=== PATIENT | female | born 1970 | race Caucasian/White ===

== ENCOUNTER → 2017-01-19 | Outpatient (CLI) | payer OTHER, BC ==
--- NOTE | 2017-01-19 13:46 | CR ---
EXAMINATION: Left knee HISTORY: Pain COMPARISON: None TECHNIQUE: 4 views FINDINGS/IMPRESSION: There is no acute osseous abnormality, dislocation, or fracture identified. Min imal joint space narrowing noted within the medial compartment with early osteophyte formation. No j oint effusion or soft tissue swelling.
== END ==
LOC: MW.CHORTHO 08:09
PROVIDERS: ATTEND Physician Assistant
DX: M25.562 Pain in left knee (principal); M25.762 Osteophyte, left knee
CPT/HCPCS: 73564-26-LT; 73564-LT

== ENCOUNTER 2017-02-06 08:29 | Observation (INO) | payer OTHER, BC ==
[~2017-02-06 08:29] MED LIST: Lactated Ringers 1,000 ML IV SCH; Lidocaine 1% 50 ML MDV ONE; ceFAZolin 2 GM in Premix Bag 1 BAG IV SCH
--- NOTE | 2017-02-06 10:00 | PCM.PREANE ---
Preanesthetic Assessment - Anesthesia/Transfusion/Family Hx Anesthesia History: Prior Anesthesia Without Reaction Family History of Anesthesia Reaction: No Transfusion History: No Prior Transfusion(s) Intubation History: Unknown - Review of Systems General: No Symptoms, Other (obesity) Pulmonary: No Symptoms Cardiovascular: No Symptoms Gastrointestinal: No symptoms Neurological: Other (Pain in right knee) Other: Reports: None - Physical Assessment O2 Sat by Pulse Oximetry: 98 Respiratory Rate: 16 Vital Signs: Last Vital Signs Temp 98.2 F 02/06/17 08:50 Pulse 69 02/06/17 08:50 Resp 16 02/06/17 08:50 BP 144/91 H 02/06/17 08:50 Pulse Ox 98 02/06/17 08:50 Height: 5 ft 5 in Weight: 230 lb ASA Class: 3 Mental Status: Alert & Oriented x3 Airway Class: Mallampati = 2 Dentition: Reports: Normal Dentition Thyro-Mental Finger Breadths: 3 Mouth Opening Finger Breadths: 3 ROM/Head Extension: Full Lungs: Clear to auscultation, Normal respiratory effort Cardiovascular: Regular Rate, Regular Rhythm, No Murmurs - Imaging/EKG Impressions: EKG - old inferior IN by criteria - Allergies Allergies/Adverse Reactions: Allergies Allergy/AdvReac Type Severity Reaction Status Date / Time No Known Allergies Allergy Verified 02/02/17 10:29 - Blood Blood Available: No Product(s) Available: None - Anesthesia Plan Pre-Op Medication Ordered: None - Acknowledgements Anesthesia Type Planned: General Anesthesia (LMA) Pt an Appropriate Candidate for the Planned Anesthesia: Yes Alternatives and Risks of Anesthesia Discussed w Pt/Guardian: Yes Pt/Guardian Understands and Agrees with Anesthesia Plan: Yes PreAnesthesia Questionnaire HEENT History: Reports: None Genitourinary History: Reports: None 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: Reports: Endocrine/Metabolic History: Reports: Obesity/BMI 30+ - Past Surgical History Head Surgeries/Procedures: Reports: None HEENT Surgical History: Reports: Tonsillectomy Female Surgical History: Reports: section, Tubal ligation Other Female Surgeries/Procedures: c/section x3, tubal ligation Musculoskeletal Surgical History: Reports: Arthroscopic knee Other Musculoskeletal Surgeries/Procedures:: rt knee arthroscopy - SUBSTANCE USE Smoking Status *Q: Never Smoker Second Hand Smoke Exposure: No Recreational Drug Use History: No - HOME MEDS Home Medications: Home Meds Acetaminophen [Tylenol Extra Strength] 2 tab PO ASDIRECTED PRN 02/02/17 [History ] traMADol HCl [Tramadol HCl] 1 - 2 tab PO ASDIRECTED PRN 02/02/17 [History] - CURRENT (IN HOUSE) MEDS Current Meds: Current Medications Hydrocodone Bitart/Acetaminophen ([place] 325-5 Mg) 1 - 2 tab PO Q4H PRN PRN Reason: Pain Lactated Ringer's (Ringers, Lactated) 1,000 mls @ 100 mls/hr IV ASDIRECTED [facility] Last Admin: 02/06/17 06:02 Dose: 100 mls/hr Cefazolin Sodium/Dextrose 2 gm (/ Premix) 50 mls @ 100 mls/hr IV ONCALL CHRISTINE Discontinued Medications Lidocaine HCl (Xylocaine 1%) Confirm Administered Dose 50 ml .ROUTE .STK-MED ONE Stop: 02/06/17 07:27 Preanesthetic Assessment - ANESTHESIA/TRANSFUSION/FAMILY HX Family History of Anesthesia Reaction: No - PHYSICAL ASSESSMENT O2 Sat by Pulse Oximetry: 98 RR: 16 Vital Signs: Last Vital Signs Temp 98.2 F 02/06/17 08:50 Pulse 69 02/06/17 08:50 Resp 16 02/06/17 08:50 BP 144/91 H 02/06/17 08:50 Pulse Ox 98 02/06/17 08:50 Height: 5 ft 5 in Weight: 230 lb - ALLERGIES Allergies/Adverse Reactions: Allergies Allergy/AdvReac Type Severity Reaction Status Date / Time No Known Allergies Allergy Verified 02/02/17 10:29
[2017-02-06] MEDS ORDERED: Midazolam 1 MG/ML 2 ML SDV ONE (10:17)
[2017-02-06] MEDS ORDERED: fentaNYL 250 MCG/5 ML SDV ONE (10:17)
[2017-02-06] MEDS ORDERED: Ondansetron 4 MG/2 ML SDV ONE (10:17)
[2017-02-06] MEDS ORDERED: Propofol 200 MG/20 ML SDV ONE ×2 (10:17→11:23)
[2017-02-06] MEDS ORDERED: Dexamethasone 4 MG/ML 5 ML MDV ONE (10:31)
[2017-02-06] MEDS ORDERED: HYDROmorphone 2 MG/ML Syringe ONE (10:37)
--- NOTE | 2017-02-06 11:03 | PCM.OPNOTE ---
- General Post-Op/Procedure Note Date of Surgery/Procedure: 02/06/17 Operative Procedure(s): Left knee arthroscopy with PMM Post-Op Diagnosis: Left knee DJD. LEft knee medial meniscus tear Anesthesia Technique: General LMA Primary Surgeon: [facility] [employer] [facility] Display Builder: Ayleen Russell in mLs: 5 Condition: Good Free Text/Narrative:: tt=14 min #[id number]
--- NOTE | 2017-02-06 11:35 | PCM.SN ---
- Free Text/Narrative Note: Called to PACU for pt with grand mal like seizure. When I arrived the pt is not shaking anymore and appears postictal, and doesn't respond to painful stimuli. After a peroid of 10 minutes she is now awake and oriented. Approximately 15 minutes after the first seizure witnessed by nursing; i witnessed another seizure with grand mal like activity, nystagmus also was noted. Valium 5mg IVP was given and seizure at this time appears to have resolved. Pt is sleepy but oriented to person, place, and time. Dr. Lacey and hospitalist konrad were notified. We will continue to monitor her in the PACU for now pending appropriate disposition.
--- NOTE | 2017-02-06 11:50 | PCM.SN ---
- Free Text/Narrative Note: Patient had witnessed seizure post operatively. Witnessed by anesthesia. Consult to medicine. She does have h/o one seizure in the past which was not worked up. No previous known seizures. Dr. Desai here now to evaluate the patient. Will defer medical management to hospitalist.
[2017-02-06 11:59] LABS: CHLORIDE,CL 110 mmol/L (98-110); SODIUM,NA 142 mmol/L (136-146)
--- NOTE | 2017-02-06 12:56 | PCM.POSTAN ---
POST ANESTHESIA ASSESSMENT - MENTAL STATUS Mental Status: alert, oriented - RESPIRATORY Respiratory Status: respiratory rate WNL, airway patent, O2 saturation stable - CARDIOVASCULAR CV Status: pulse rate WNL, blood pressure stable - GASTROINTESTINAL GI Status: no symptoms - PAIN Pain Score: 4 - POST OP HYDRATION Hydration Status: adequate & stable Free Text/Narrative:: going to ICU for observation for seizure activity
[2017-02-06] MEDS ORDERED: fentaNYL 100 MCG/2 ML SDV IVPUSH PRN (12:58)
[2017-02-06] MEDS ORDERED: fentaNYL 100 MCG/2 ML SDV ONE (13:00)
--- NOTE | 2017-02-06 13:15 | PCM48HPAN ---
Post Anesthesia Note - EVALUATION WITHIN 48HRS OF ANESTHETIC Vital Signs in Normal Range: Yes Patient Participated in Evaluation: Yes Respiratory Function Stable: Yes Airway Patent: Yes Cardiovascular Function Stable: Yes Hydration Status Stable: Yes Pain Control Satisfactory: Yes Nausea and Vomiting Control Satisfactory: Yes Mental Status Recovered: Yes
[2017-02-06] MEDS: Acetaminophen/HYDROcodone 325-5 MG Tab PO PRN ×3 (14:28→23:05)
[2017-02-06] MEDS: levETIRAcetam 500 MG Tab PO SCH ×2 (14:28→20:53)
--- NOTE | 2017-02-06 14:43 | PCM.HP ---
[id number] Seizure Source of Information: Patient, Provider History Limitations: Reports: No limitations - History of Present Illness Initial Comments - Free Text/Narative: 46 yo female admitted 02/06/17 for observed seizure after left knee arthroscopy. Medicine service called by Dr. Lacey and anesthesia to admit patient after 2 observed seizures in the PACU after left knee arthroscopy for medial meniscus tear. As per anesthesia patient did well during case but in PACU had one "seizure" with total body tremors and a 10 minute post-ictal stage. Patient then had another episode that was stopped using 5 mg of diazepam IV. Patient had a seizure 2 years ago in [place]. She did see a neurologist at that time where she states they did an EEG as well as other imaging. She was not started on an antiseizure medication at that time. She was treated for "headaches". also reports that she has been previously diagnosed with SLE but is not treated. In addition, patient has a history of hypertension that she was treated with propranolol before but does not take anymore. In OR, patient received Propofol, Dilaudid, fentanyl, Ancef, decadron, and zofran and Sevoflurane. In PACU second seizure was relieved with 5 mg Diazepam IV. Patient will be admitted for Observation in ICU. 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: Endocrine/Metabolic History: Reports: Obesity/BMI 30+ - Past Surgical History Head Surgeries/Procedures: Reports: None HEENT Surgical History: Reports: Tonsillectomy Female Surgical History: Reports: section, Tubal ligation Other Female Surgeries/Procedures: c/section x3, tubal ligation Musculoskeletal Surgical History: Reports: Arthroscopic knee Other Musculoskeletal Surgeries/Procedures:: rt knee arthroscopy Social & Family History - Tobacco Use Smoking Status *Q: Never Smoker Second Hand Smoke Exposure: No - Recreational Drug Use Recreational Drug Use: No Drug Use in Last 12 Months: No H&P Review of Systems - Review of Systems: Review Of Systems: See Below General: Reports: other (Has been feeling stressed secondary to daughters 8 months ago. ). Denies: fever, chills, fatigue HEENT: Denies: dysphasia, headaches, sore throat Pulmonary: Denies: Shortness of Breath, Wheezing, Pleuritic Chest Pain, Cough, Sputum Cardiovascular: Denies: chest pain, palpitations, edema Gastrointestinal: Denies: Abdominal pain, Diarrhea, Nausea Genitourinary: Denies: dysuria, hematuria Musculoskeletal: Denies: neck pain, leg pain Skin: Denies: cyanosis Psychiatric: Denies: confusion Neurological: Denies: Confusion Hematologic/Lymphatic: Denies: anemia, easy bleeding Exam - Exam Exam: See Below - Vital Signs Vital Signs: Last Vital Signs Temp 37.3 C 02/06/17 10:56 Pulse 63 02/06/17 13:00 Resp 10 L 02/06/17 13:00 BP 121/66 02/06/17 13:00 Pulse Ox 97 02/06/17 13:00 Weight: 104.326 kg - Exam Quality Assessment: DVT prophylaxis General: alert, oriented, cooperative HEENT: Conjunctiva clear, EACs clear, EOMI, Hearing intact, Mucosa moist & pink , Nares patent, Normal nasal septum, Posterior pharynx clear, PERRLA Neck: supple, trachea midline, 2 Lungs: Clear to auscultation, Normal respiratory effort Cardiovascular: regular rate, regular rhythm, normal S1, normal S2 Abdomen: normal bowel sounds, soft Extremities: normal inspection, normal pulses. No: calf tenderness, edema Peripheral Pulses: 2+: radial (L), radial (R), posterior tibial (L), posterior tibial (R), dorsalis pedis (L), dorsalis pedis (R) Skin: warm, dry, intact Neurological: cranial nerves intact Neuro Extensive - Mental Status: alert, oriented x3, normal mood/affect, normal cognition Neuro Extensive - Motor, Sensory, Reflexes: CN II-XII intact Psychiatric: alert, normal affect, normal mood - Patient Data Lab Results last 24 hrs: Laboratory Results - last 24 hr 02/06/17 02/06/17 02/06/17 Range/Units 09:17 11:21 11:21 WBC 5.91 (4.0-11.0) K/uL RBC 4.52 (4.30-5.90) M/uL Hgb 13.6 (12.0-16.0) g/dL Hct 39.1 (36.0-46.0) % MCV 86.5 (80.0-98.0) fL MCH 30.1 (27.0-32.0) pg MCHC 34.8 (31.0-37.0) g/dL RDW Std Deviation 39.7 (28.0-62.0) fl RDW Coeff of Leanne 13 (11.0-15.0) % Plt Count 163 (150-400) K/uL MPV 11.00 (7.40-12.00) fL Neut % (Auto) 60.3 (48.0-80.0) % Lymph % (Auto) 29.4 (16.0-40.0) % [place] % (Auto) 7.1 (0.0-15.0) % Eos % (Auto) 3.0 (0.0-7.0) % Baso % (Auto) 0.2 (0.0-1.5) % Neut # (Auto) 3.6 (1.4-5.7) K/uL Lymph # (Auto) 1.7 (0.6-2.4) K/uL [place] # (Auto) 0.4 (0.0-0.8) K/uL Eos # (Auto) 0.2 (0.0-0.7) K/uL Baso # (Auto) 0.0 (0.0-0.1) K/uL Nucleated RBC % 0.0 /100WBC Nucleated RBCs # 0 K/uL Sodium 142 (136-146) mmol/L Potassium 4.3 (3.5-5.1) mmol/L Chloride 110 (98-110) mmol/L Carbon Dioxide 23 (21-31) mmol/L BUN 7 (6.0-23.0) mg/dL Creatinine 0.8 (0.6-1.5) mg/dL Est Cr Clr Drug Dosing 77.38 mL/min Estimated GFR (MDRD) > 60.0 ml/min Glucose 113 H (60-110) mg/dL Calcium 9.0 (8.8-10.8) mg/dL Prolactin 223 H (0-27) ng/mL HCG, Qual NEGATIVE (NEG) Result Diagrams: 02/06/17 11:21 02/06/17 11:21 *Q Meaningful Use (ADM) - VTE *Q VTE Criteria *Q: - Stroke *Q Stroke Criteria *Q: - AMI *Q AMI Criteria *Q: - Problem List (1) Grand mal seizure SNOMED Code(s): 23817307 ICD Code: G40.409 - OTH GENERALIZED EPILEPSY, NOT INTRACTABLE, W/O STAT EPI Status: Acute Priority: High Current Visit: Yes Problem List Initiated/Reviewed/Updated: Yes Orders Last 24hrs: Active Orders 24 hr Category Date Time Status Patient Status [ADT] Routine ADT 02/06/17 14:09 Active Antiembolic Devices [RC] PER UNIT ROUTINE Care 02/06/17 14:12 Active EEG Awake Drowsy [RC] ROUTINE Care 02/06/17 14:23 Active EKG 12 Lead [EKG Documentation Completion] [RC] ROUTINE Care 02/06/17 14:34 Active Notify Provider Consults [RC] ASDIRECTED Care 02/06/17 11:48 Active Oxygen Therapy [RC] PRN Care 02/06/17 14:09 Active Ready for Discharge [RC] PER UNIT ROUTINE Care 02/06/17 10:46 Active VTE/DVT Education [RC] PER UNIT ROUTINE Care 02/06/17 14:09 Active Vital Signs [RC] Q4H Care 02/06/17 14:09 Active Consult to Physician [CONS] Routine Cons 02/06/17 11:46 Active Nothing per Oral After Midnight Diet [DIET] Diet 02/05/17 Dinner Active Regular Diet [DIET] Diet 02/06/17 Dinner Active Brain w wo Cont [MR] Routine Exams 02/06/17 14:21 Ordered CBC WITH AUTO DIFF [HEME] DAILY Lab 02/07/17 05:00 Ordered CBC WITH AUTO DIFF [HEME] DAILY Lab 02/08/17 05:00 Ordered CBC WITH AUTO DIFF [HEME] DAILY Lab 02/09/17 05:00 Ordered COMPREHENSIVE METABOLIC PN,CMP [CHEM] DAILY Lab 02/07/17 05:00 Ordered COMPREHENSIVE METABOLIC PN,CMP [CHEM] DAILY Lab 02/08/17 05:00 Ordered COMPREHENSIVE METABOLIC PN,CMP [CHEM] DAILY Lab 02/09/17 05:00 Ordered MAGNESIUM [CHEM] AM Lab 02/07/17 05:11 Ordered Acetaminophen/HYDROcodone [[place] 325-5 MG] Med 02/06/17 09:00 Active 1 - 2 tab PO Q4H PRN ceFAZolin [Ancef] 2 gm Med 02/06/17 08:00 Active Premix Bag 1 bag IV ONCALL fentaNYL [Sublimaze] Med 02/06/17 12:58 Active 50 mcg IVPUSH SEECOMMENT PRN levETIRAcetam [Keppra] Med 02/06/17 14:15 Active 500 mg PO BID Obtain Home Medication List [OM.PC] Routine Oth 02/06/17 06:00 Ordered Seizure Precautions [OM.PC] Routine Oth 02/06/17 14:09 Ordered Sequential Compression Device [OM.PC] Per Unit Routine Oth 02/06/17 14:11 Ordered Medication Orders Hydrocodone Bitart/Acetaminophen ([place] 325-5 Mg) 1 - 2 tab PO Q4H PRN PRN Reason: Pain Last Admin: 02/06/17 14:28 Dose: 2 tab Fentanyl (Sublimaze) 50 mcg IVPUSH SEECOMMENT PRN PRN Reason: Pain (moderate 4-6) Cefazolin Sodium/Dextrose 2 gm (/ Premix) 50 mls @ 100 mls/hr IV ONCALL CHRISTINE Levetiracetam (Keppra) 500 mg PO BID CHRISTINE Last Admin: 02/06/17 14:28 Dose: 500 mg Assessment/Plan Comment:: 46 yo female admitted 02/06/17 for observed grand mal seizure x 2. Seizure: I did call Dr. Jules, neurologist Mario Yen, who recommended starting Keppra 500 mg BID as this was her second episode of seizures. We will also get an MRI, EEG, UA and ECG. Her labs showed no electrolyte disturbances and her prolactin was elevated at 223. Diazepam 5 mg IV prn for seizures. Will plan to have patient see Dr. Malloy, neurologist as outpatient if she does fine overnight. Dispo: Tomorrow pending.
--- NOTE | 2017-02-06 15:37 | OR ---
SURGEON: Zulma Lacey MD DATE OF PROCEDURE: 02/06/2017 PREOPERATIVE DIAGNOSIS: Left knee medial meniscus tear. POSTOPERATIVE DIAGNOSES: 1. Left knee medial meniscus tear. 2. Left knee degenerative joint disease. PROCEDURE: Left knee arthroscopy with partial medial meniscectomy. PRESIDENT SALES AND MARKETING: Ayleen Russell PA-C. ANESTHESIA: General. ESTIMATED BLOOD LOSS: 5 mL. TOURNIQUET TIME: 14 minutes. COMPLICATIONS: None. DVT PROPHYLAXIS: Not indicated. IMPLANTS USED: None. BRIEF HISTORY: Letha is a 46-year-old female, who sustained an injury to her left knee. She failed to respond to conservative treatment. An MRI did show a tear of the medial meniscus. Due to her lack of response to conservative treatment, I did recommend surgical intervention. The risks and goals of procedure were discussed with the patient and were documented preoperatively. She agreed to proceed. DESCRIPTION OF PROCEDURE: The patient was properly identified and brought to the operating room. She was transferred from the OR cart and placed on operating table in a supine position. General anesthesia was administered. After adequate anesthesia was obtained, a well-padded tourniquet was applied to the left lower extremity. The left lower extremity was then prepped in standard fashion using ChloraPrep solution. It was then sterilely draped. A time-out was performed to ensure correct site and procedure. Preoperative antibiotics were given. The surgical site had been marked preoperatively. An Esmarch was used to exsanguinate the left lower extremity and the tourniquet was inflated to 250 mmHg. A lateral portal arthrotomy was established. Blunt trocar and cannula were introduced into the suprapatellar space. Camera, inflow, and outflow were assembled. No significant synovitis was noted. The patellofemoral joint was visualized. The patella appeared to track centrally. I then extended down the lateral and medial gutter. No loose bodies were identified. I then entered the medial compartment. A medial portal arthrotomy was established. A blunt probe was inserted. The medial meniscus was probed. She was found to have a tear of the posterior horn which was unstable. Using a combination of biters and shaver, this was resected back to a stable remnant. 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 The medial femoral condyle also showed grade 2 chondromalacia. I then entered the notch. Both the ACL and PCL were visualized and probed and found to be intact. I finally entered the lateral compartment. The lateral tibial plateau as well as the lateral femoral condyle showed softening consistent with grade 1 chondromalacia. The meniscus was probed and found to be stable. I then entered the patellofemoral joint again. A probe was used to inspect the joint surfaces. There was an area of wear along the central portion of the trochlear groove, which measured approximately 5 mm x 20 mm. This was diffuse grade 3 chondromalacia. Grade 2 to grade 3 chondromalacia was also noted diffusely along the undersurface of the patella. Instruments were then removed from the knee. The portal sites were closed with 3-0 nylon. Lidocaine 1% was injected along the portal tracts. Xeroform gauze was placed over the wound and a bulky dressing was applied. The tourniquet was then deflated. She was awakened from her anesthetic and transferred back to the operating room cart. She was brought to recovery room in stable condition. All needle and sponge counts were correct. ROSARIO / DEENA /[id number]
[2017-02-06] MEDS ORDERED: Gadobutrol 7.5 mMOL/7.5 ML SDV IVPUSH STA (15:49)
[2017-02-07] MEDS: Acetaminophen/HYDROcodone 325-5 MG Tab PO PRN ×3 (03:28→11:53)
[2017-02-07 06:32] LABS: CHLORIDE,CL 111 mmol/L (98-110); SODIUM,NA 142 mmol/L (136-146)
[2017-02-07] MEDS: levETIRAcetam 500 MG Tab PO SCH (08:39)
--- NOTE | 2017-02-07 10:56 | PCM.DCSUM1 ---
<Nav Desai - Last Filed: 02/07/17 10:54> Discharge Summary - Hospital Course HPI Initial Comments: 46 yo female admitted 02/06/17 for observed seizure after left knee arthroscopy. Brief History: Medicine service was called by Dr. Lacey and anesthesia to admit patient after 2 observed seizures in the PACU after left knee arthroscopy for medial meniscus tear. As per anesthesia patient did well during case but in PACU had one "seizure" with total body tremors and a 10 minute post-ictal stage. Patient then had another episode that was stopped using 5 mg of diazepam IV. Patient had a seizure 2 years ago in [place]. She did see a neurologist at that time where she states they did an EEG as well as other imaging. She was not started on an antiseizure medication at that time. She was treated for "headaches". also reports that she has been previously diagnosed with SLE but is not treated. In addition, patient has a history of hypertension that she was treated with propranolol before but does not take anymore. - Discharge Data Discharge Date: 02/07/17 Discharge Disposition: Home, Self-Care 01 Condition: Good - Discharge Diagnosis/Problem(s) (1) Grand mal seizure SNOMED Code(s): 48597801 ICD Code: G40.409 - OTH GENERALIZED EPILEPSY, NOT INTRACTABLE, W/O STAT EPI Status: Acute Priority: High - Patient Summary/Data Operative Procedure(s) Performed: Left knee arthroscopy with PMM Consults: Consultations 02/06/17 11:46 Consult to Physician [CONS] Routine Hospital Course: see summary below. - Patient Instructions Diet: Usual Diet as Tolerated Activity: Apply Ice, As Tolerated, Elevate Extremity, Rest and Relax Today Driving: Do Not Drive Showering/Bathing, Other: May shower in 48 hours. Wound/Incision Care: Keep Operative Site/Wound Site Clean and Dry Notify Provider of: Fever, Increased Pain, Swelling and Redness, Drainage, Nausea and/or Vomiting - Discharge Plan Prescriptions/Med Rec: Acetaminophen/HYDROcodone [[place] 325-5 MG] 1 - 2 tab PO Q4H PRN #80 tablet PRN Reason: Pain levETIRAcetam [Keppra] 500 mg PO BID #28 tablet Home Medications: Home Meds traMADol HCl [Tramadol HCl] 50 - 100 mg PO QID PRN 02/02/17 [History] Acetaminophen/HYDROcodone [[place] 325-5 MG] 1 - 2 tab PO Q4H PRN #80 tablet 02/06 [Rx] levETIRAcetam [Keppra] 500 mg PO BID #28 tablet 02/07/17 [Rx] Patient Handouts: Seizure, Adult Referrals: Zulma Lacey MD [Physician] - 03/16/17 8:30 am Monse Malloy MD [Physician] - 02/17/17 10:00 am (Follow up with Neurologist ) Fariha Ricketts PA [Physician Director Of People] - 02/15/17 10:00 am (follow up with PCP- Jamarcus) Amelia Jorge PA [Physician Director Of People] - 02/16/17 8:30 am (If you have questions prior to followup, call Dr. Lacey's clinic) - Discharge Summary/Plan Comment DC Time >30 min.: Yes Discharge Summary/Plan Comment: 46 yo female admitted 02/06/17 for observed seizure after left knee arthroscopy. Medicine service was called by Dr. Lacey and anesthesia to admit patient after 2 observed seizures in the PACU after left knee arthroscopy for medial meniscus tear. As per anesthesia patient did well during case but in PACU had one "seizure" with total body tremors and a 10 minute post-ictal stage. Patient then had another episode that was stopped using 5 mg of diazepam IV. Patient had a seizure 2 years ago in [place]. She did see a neurologist at that time where she states they did an EEG as well as other imaging. She was not started on an antiseizure medication at that time. She was treated for "headaches". also reports that she has been previously diagnosed with SLE but is not treated. In addition, patient has a history of hypertension that she was treated with propranolol before but does not take anymore. In OR, patient received Propofol, Dilaudid, fentanyl, Ancef, decadron, and zofran and Sevoflurane. In PACU second seizure was relieved with 5 mg Diazepam IV. Patient will be admitted for Observation in ICU. Patient did well overnight and had no further seizures. ECG, UA, CBC, CMP were all unremarkable. Patient did have an elevated prolactin of 223 soon after the observed seizures. Unofficial MRI showed no gross anatomic abnormalities to explain seizures. I did talk with Dr. Jules, neurologist Yovana Martin, who agreed with starting the patient on Keppra 500 mg twice daily. A prescription for this was given to patient on day of discharge as well as outpatient EEG, follow-up with Dr. Malloy, neurlogist, her pcp JOVANA Shaikh, and Dr. Lacey, orthopedics. Patient was discharged in good condition and instructed to follow- up with her appointments, take medication as prescribed and go to ED if she has any further episodes of seizures. - General Info Date of Service: 02/07/17 Admission Dx/Problem (Free Text: Seizure Functional Status: Reports: pain controlled, tolerating diet, ambulating - Review of Systems General: Denies: Fever, Weakness, Fatigue HEENT: Denies: headaches Pulmonary: Denies: shortness of breath, wheezing Cardiovascular: Denies: Chest Pain, Palpitations, Edema Gastrointestinal: Denies: Abdominal pain, Constipation, Nausea, Vomiting Genitourinary: Denies: dysuria, hematuria Musculoskeletal: Reports: joint pain. Denies: neck pain, leg pain Skin: Denies: cyanosis Neurological: Denies: Confusion, Dizziness Psychiatric: Denies: confusion - Patient Data Vitals - Most Recent: Last Vital Signs Temp 36.2 C 02/07/17 07:51 Pulse 60 02/07/17 06:00 Resp 16 02/07/17 09:00 BP 148/60 H 02/07/17 09:00 Pulse Ox 98 02/07/17 09:00 Weight - Most Recent: 104.34 kg I&O - Last 24 hours: Intake & Output 02/06/17 02/07/17 02/07/17 22:59 06:59 14:59 Intake Total 900 1200 Output Total 1200 1500 Balance -300 -300 Lab Results - Last 24 hrs: Laboratory Results - last 24 hr 02/06/17 02/06/17 02/06/17 Range/Units 11:21 11:21 18:00 WBC 5.91 (4.0-11.0) K/uL RBC 4.52 (4.30-5.90) M/uL Hgb 13.6 (12.0-16.0) g/dL Hct 39.1 (36.0-46.0) % MCV 86.5 (80.0-98.0) fL MCH 30.1 (27.0-32.0) pg MCHC 34.8 (31.0-37.0) g/dL RDW Std Deviation 39.7 (28.0-62.0) fl RDW Coeff of Leanne 13 (11.0-15.0) % Plt Count 163 (150-400) K/uL MPV 11.00 (7.40-12.00) fL Neut % (Auto) 60.3 (48.0-80.0) % Lymph % (Auto) 29.4 (16.0-40.0) % [place] % (Auto) 7.1 (0.0-15.0) % Eos % (Auto) 3.0 (0.0-7.0) % Baso % (Auto) 0.2 (0.0-1.5) % Neut # (Auto) 3.6 (1.4-5.7) K/uL Lymph # (Auto) 1.7 (0.6-2.4) K/uL [place] # (Auto) 0.4 (0.0-0.8) K/uL Eos # (Auto) 0.2 (0.0-0.7) K/uL Baso # (Auto) 0.0 (0.0-0.1) K/uL Nucleated RBC % 0.0 /100WBC Nucleated RBCs # 0 K/uL Sodium 142 (136-146) mmol/L Potassium 4.3 (3.5-5.1) mmol/L Chloride 110 (98-110) mmol/L Carbon Dioxide 23 (21-31) mmol/L BUN 7 (6.0-23.0) mg/dL Creatinine 0.8 (0.6-1.5) mg/dL Est Cr Clr Drug Dosing 77.38 mL/min Estimated GFR (MDRD) > 60.0 ml/min Glucose 113 H (60-110) mg/dL Calcium 9.0 (8.8-10.8) mg/dL Magnesium (1.5-2.3) mEq/L Total Bilirubin (0.1-1.5) mg/dL AST (5-40) IU/L ALT (8-54) IU/L Alkaline Phosphatase (40-150) Total Protein (6.0-8.0) g/dL Albumin (3.5-5.0) g/dL Globulin (2.0-3.5) g/dL Albumin/Globulin Ratio (1.3-2.8) Prolactin 223 H (0-27) ng/mL Urine Color YELLOW Urine Appearance CLEAR Urine pH 7.0 (5.0-8.0) Ur Specific [place] <= 1.005 (1.001-1.035) Urine Protein NEGATIVE (NEGATIVE) mg/dL Urine Glucose (UA) NEGATIVE (NEGATIVE) mg/dL Urine Ketones NEGATIVE (NEGATIVE) mg/dL Urine Occult Blood NEGATIVE (NEGATIVE) Urine Nitrite NEGATIVE (NEGATIVE) Urine Bilirubin NEGATIVE (NEGATIVE) Urine Urobilinogen 0.2 (<2.0) EU/dL Ur Leukocyte Esterase NEGATIVE (NEGATIVE) Urine RBC Not Reportable Urine WBC 0-1 (0-5/HPF) Ur Epithelial Cells RARE (NONE-FEW) Urine Bacteria RARE (NEGATIVE) 02/07/17 02/07/17 02/07/17 Range/Units 05:30 05:30 05:30 WBC 7.36 (4.0-11.0) K/uL RBC 4.28 L (4.30-5.90) M/uL Hgb 12.8 (12.0-16.0) g/dL Hct 37.2 (36.0-46.0) % MCV 86.9 (80.0-98.0) fL MCH 29.9 (27.0-32.0) pg MCHC 34.4 (31.0-37.0) g/dL RDW Std Deviation 39.8 (28.0-62.0) fl RDW Coeff of Leanne 13 (11.0-15.0) % Plt Count 160 (150-400) K/uL MPV 11.30 (7.40-12.00) fL Neut % (Auto) 68.8 (48.0-80.0) % Lymph % (Auto) 23.8 (16.0-40.0) % [place] % (Auto) 6.5 (0.0-15.0) % Eos % (Auto) 0.8 (0.0-7.0) % Baso % (Auto) 0.1 (0.0-1.5) % Neut # (Auto) 5.1 (1.4-5.7) K/uL Lymph # (Auto) 1.8 (0.6-2.4) K/uL [place] # (Auto) 0.5 (0.0-0.8) K/uL Eos # (Auto) 0.1 (0.0-0.7) K/uL Baso # (Auto) 0.0 (0.0-0.1) K/uL Nucleated RBC % 0.0 /100WBC Nucleated RBCs # 0 K/uL Sodium 142 (136-146) mmol/L Potassium 3.9 (3.5-5.1) mmol/L Chloride 111 H (98-110) mmol/L Carbon Dioxide 22 (21-31) mmol/L BUN 7 (6.0-23.0) mg/dL Creatinine 0.7 (0.6-1.5) mg/dL Est Cr Clr Drug Dosing 88.30 mL/min Estimated GFR (MDRD) > 60.0 ml/min Glucose 95 (60-110) mg/dL Calcium 9.0 (8.8-10.8) mg/dL Magnesium 1.6 (1.5-2.3) mEq/L Total Bilirubin 0.4 (0.1-1.5) mg/dL AST 17 (5-40) IU/L ALT 27 (8-54) IU/L Alkaline Phosphatase 54 (40-150) Total Protein 6.3 (6.0-8.0) g/dL Albumin 3.8 (3.5-5.0) g/dL Globulin 2.5 (2.0-3.5) g/dL Albumin/Globulin Ratio 1.5 (1.3-2.8) Prolactin (0-27) ng/mL Urine Color Urine Appearance Urine pH (5.0-8.0) Ur Specific [place] (1.001-1.035) Urine Protein (NEGATIVE) mg/dL Urine Glucose (UA) (NEGATIVE) mg/dL Urine Ketones (NEGATIVE) mg/dL Urine Occult Blood (NEGATIVE) Urine Nitrite (NEGATIVE) Urine Bilirubin (NEGATIVE) Urine Urobilinogen (<2.0) EU/dL Ur Leukocyte Esterase (NEGATIVE) Urine RBC Urine WBC (0-5/HPF) Ur Epithelial Cells (NONE-FEW) Urine Bacteria (NEGATIVE) Med Orders - Current: Current Medications Hydrocodone Bitart/Acetaminophen ([place] 325-5 Mg) 1 - 2 tab PO Q4H PRN PRN Reason: Pain Last Admin: 02/07/17 07:47 Dose: 2 tab Diazepam (Valium) 5 mg IVPUSH ONETIME PRN PRN Reason: Seizures Levetiracetam (Keppra) 500 mg PO BID [facility] Last Admin: 02/07/17 08:39 Dose: 500 mg Discontinued Medications Dexamethasone (Dexamethasone) Confirm Administered Dose 20 mg .ROUTE .STK-MED ONE Stop: 02/06/17 10:32 Diazepam (Valium) 5 mg IVPUSH ONETIME ONE Stop: 02/06/17 11:24 Last Admin: 02/06/17 11:26 Dose: 5 mg Fentanyl (Sublimaze) Confirm Administered Dose 250 mcg .ROUTE .STK-MED ONE Stop: 02/06/17 10:18 Fentanyl (Sublimaze) 50 mcg IVPUSH SEECOMMENT PRN PRN Reason: Pain (moderate 4-6) Fentanyl (Sublimaze) Confirm Administered Dose 100 mcg .ROUTE .STK-MED ONE Stop: 02/06/17 13:01 Last Admin: 02/06/17 14:03 Dose: Not Given Gadobutrol (Gadavist) 7.5 ml IVPUSH ONETIME STA Stop: 02/06/17 15:50 Last Admin: 02/06/17 15:50 Dose: 7.5 ml Hydromorphone HCl (Dilaudid) Confirm Administered Dose 2 mg .ROUTE .STK-MED ONE Stop: 02/06/17 10:38 Lactated Ringer's (Ringers, Lactated) 1,000 mls @ 100 mls/hr IV ASDIRECTED [facility] Last Admin: 02/06/17 06:02 Dose: 100 mls/hr Cefazolin Sodium/Dextrose 2 gm (/ Premix) 50 mls @ 100 mls/hr IV ONCALL [facility] Cefazolin Sodium/Dextrose (Ancef) Confirm Administered Dose 100 mls @ as directed .ROUTE .STK-MED ONE Stop: 02/06/17 10:18 Lidocaine HCl (Xylocaine 1%) Confirm Administered Dose 50 ml .ROUTE .STK-MED ONE Stop: 02/06/17 07:27 Midazolam HCl (Versed 1 Mg/Ml) Confirm Administered Dose 2 mg .ROUTE .STK-MED ONE Stop: 02/06/17 10:18 Ondansetron HCl (Zofran) Confirm Administered Dose 4 mg .ROUTE .STK-MED ONE Stop: 02/06/17 10:18 Propofol (Diprivan 20 Ml) Confirm Administered Dose 200 mg .ROUTE .STK-MED ONE Stop: 02/06/17 10:18 Propofol (Diprivan 20 Ml) Confirm Administered Dose 200 mg .ROUTE .STK-MED ONE Stop: 02/06/17 11:24 - Exam Quality Assessment: Reports: DVT prophylaxis General: Reports: alert, oriented, cooperative, no acute distress HEENT: Reports: Pupils equal, Pupils reactive, EOMI, Mucous membr. moist/pink Neck: Reports: supple Lungs: Reports: Clear to auscultation, Normal respiratory effort Cardiovascular: Reports: Regular Rate, Regular Rhythm Abdomen: Reports: bowel sounds present, soft, no tenderness, no distension Back Exam: Reports: normal inspection Extremities: Reports: no edema, normal pulses Skin: Reports: warm, dry, intact Neurological: Reports: no new focal deficit Psy/Mental Status: Reports: alert, normal affect, normal mood *Q Meaningful Use (DIS) - VTE *Q VTE Criteria *Q: - Stroke *Q Stroke Criteria *Q: - AMI *Q AMI Criteria *Q: <Tim Duenas O - Last Filed: 02/07/17 12:55> Discharge Summary - Patient Summary/Data Consults: Consultations 02/06/17 11:46 Consult to Physician [CONS] Routine - Discharge Summary/Plan Comment Discharge Summary/Plan Comment: I was present with the resident during the history and exam. I discussed the case with the resident and agree with the findings an plan as documented in the resident's note - Patient Data Vitals - Most Recent: Last Vital Signs Temp 36.2 C 02/07/17 07:51 Pulse 65 02/07/17 10:00 Resp 8 L 02/07/17 10:00 BP 131/68 02/07/17 10:00 Pulse Ox 99 02/07/17 10:00 I&O - Last 24 hours: Intake & Output 02/06/17 02/07/17 02/07/17 22:59 06:59 14:59 Intake Total 900 1200 Output Total 1200 1500 Balance -300 -300 Lab Results - Last 24 hrs: Laboratory Results - last 24 hr 02/06/17 02/06/17 02/07/17 Range/Units 11:21 18:00 05:30 WBC 7.36 (4.0-11.0) K/uL RBC 4.28 L (4.30-5.90) M/uL Hgb 12.8 (12.0-16.0) g/dL Hct 37.2 (36.0-46.0) % MCV 86.9 (80.0-98.0) fL MCH 29.9 (27.0-32.0) pg MCHC 34.4 (31.0-37.0) g/dL RDW Std Deviation 39.8 (28.0-62.0) fl RDW Coeff of Leanne 13 (11.0-15.0) % Plt Count 160 (150-400) K/uL MPV 11.30 (7.40-12.00) fL Neut % (Auto) 68.8 (48.0-80.0) % Lymph % (Auto) 23.8 (16.0-40.0) % [place] % (Auto) 6.5 (0.0-15.0) % Eos % (Auto) 0.8 (0.0-7.0) % Baso % (Auto) 0.1 (0.0-1.5) % Neut # (Auto) 5.1 (1.4-5.7) K/uL Lymph # (Auto) 1.8 (0.6-2.4) K/uL [place] # (Auto) 0.5 (0.0-0.8) K/uL Eos # (Auto) 0.1 (0.0-0.7) K/uL Baso # (Auto) 0.0 (0.0-0.1) K/uL Nucleated RBC % 0.0 /100WBC Nucleated RBCs # 0 K/uL Sodium 142 (136-146) mmol/L Potassium 4.3 (3.5-5.1) mmol/L Chloride 110 (98-110) mmol/L Carbon Dioxide 23 (21-31) mmol/L BUN 7 (6.0-23.0) mg/dL Creatinine 0.8 (0.6-1.5) mg/dL Est Cr Clr Drug Dosing 77.38 mL/min Estimated GFR (MDRD) > 60.0 ml/min Glucose 113 H (60-110) mg/dL Calcium 9.0 (8.8-10.8) mg/dL Magnesium (1.5-2.3) mEq/L Total Bilirubin (0.1-1.5) mg/dL AST (5-40) IU/L ALT (8-54) IU/L Alkaline Phosphatase (40-150) Total Protein (6.0-8.0) g/dL Albumin (3.5-5.0) g/dL Globulin (2.0-3.5) g/dL Albumin/Globulin Ratio (1.3-2.8) Prolactin 223 H (0-27) ng/mL Urine Color YELLOW Urine Appearance CLEAR Urine pH 7.0 (5.0-8.0) Ur Specific [place] <= 1.005 (1.001-1.035) Urine Protein NEGATIVE (NEGATIVE) mg/dL Urine Glucose (UA) NEGATIVE (NEGATIVE) mg/dL Urine Ketones NEGATIVE (NEGATIVE) mg/dL Urine Occult Blood NEGATIVE (NEGATIVE) Urine Nitrite NEGATIVE (NEGATIVE) Urine Bilirubin NEGATIVE (NEGATIVE) Urine Urobilinogen 0.2 (<2.0) EU/dL Ur Leukocyte Esterase NEGATIVE (NEGATIVE) Urine RBC Not Reportable Urine WBC 0-1 (0-5/HPF) Ur Epithelial Cells RARE (NONE-FEW) Urine Bacteria RARE (NEGATIVE) 02/07/17 02/07/17 Range/Units 05:30 05:30 WBC (4.0-11.0) K/uL RBC (4.30-5.90) M/uL Hgb (12.0-16.0) g/dL Hct (36.0-46.0) % MCV (80.0-98.0) fL MCH (27.0-32.0) pg MCHC (31.0-37.0) g/dL RDW Std Deviation (28.0-62.0) fl RDW Coeff of Leanne (11.0-15.0) % Plt Count (150-400) K/uL MPV (7.40-12.00) fL Neut % (Auto) (48.0-80.0) % Lymph % (Auto) (16.0-40.0) % [place] % (Auto) (0.0-15.0) % Eos % (Auto) (0.0-7.0) % Baso % (Auto) (0.0-1.5) % Neut # (Auto) (1.4-5.7) K/uL Lymph # (Auto) (0.6-2.4) K/uL [place] # (Auto) (0.0-0.8) K/uL Eos # (Auto) (0.0-0.7) K/uL Baso # (Auto) (0.0-0.1) K/uL Nucleated RBC % /100WBC Nucleated RBCs # K/uL Sodium 142 (136-146) mmol/L Potassium 3.9 (3.5-5.1) mmol/L Chloride 111 H (98-110) mmol/L Carbon Dioxide 22 (21-31) mmol/L BUN 7 (6.0-23.0) mg/dL Creatinine 0.7 (0.6-1.5) mg/dL Est Cr Clr Drug Dosing 88.30 mL/min Estimated GFR (MDRD) > 60.0 ml/min Glucose 95 (60-110) mg/dL Calcium 9.0 (8.8-10.8) mg/dL Magnesium 1.6 (1.5-2.3) mEq/L Total Bilirubin 0.4 (0.1-1.5) mg/dL AST 17 (5-40) IU/L ALT 27 (8-54) IU/L Alkaline Phosphatase 54 (40-150) Total Protein 6.3 (6.0-8.0) g/dL Albumin 3.8 (3.5-5.0) g/dL Globulin 2.5 (2.0-3.5) g/dL Albumin/Globulin Ratio 1.5 (1.3-2.8) Prolactin (0-27) ng/mL Urine Color Urine Appearance Urine pH (5.0-8.0) Ur Specific [place] (1.001-1.035) Urine Protein (NEGATIVE) mg/dL Urine Glucose (UA) (NEGATIVE) mg/dL Urine Ketones (NEGATIVE) mg/dL Urine Occult Blood (NEGATIVE) Urine Nitrite (NEGATIVE) Urine Bilirubin (NEGATIVE) Urine Urobilinogen (<2.0) EU/dL Ur Leukocyte Esterase (NEGATIVE) Urine RBC Urine WBC (0-5/HPF) Ur Epithelial Cells (NONE-FEW) Urine Bacteria (NEGATIVE) Med Orders - Current: Current Medications Discontinued Medications Hydrocodone Bitart/Acetaminophen ([place] 325-5 Mg) 1 - 2 tab PO Q4H PRN PRN Reason: Pain Last Admin: 02/07/17 11:53 Dose: 2 tab Dexamethasone (Dexamethasone) Confirm Administered Dose 20 mg .ROUTE .STK-MED ONE Stop: 02/06/17 10:32 Diazepam (Valium) 5 mg IVPUSH ONETIME ONE Stop: 02/06/17 11:24 Last Admin: 02/06/17 11:26 Dose: 5 mg Diazepam (Valium) 5 mg IVPUSH ONETIME PRN PRN Reason: Seizures Fentanyl (Sublimaze) Confirm Administered Dose 250 mcg .ROUTE .STK-MED ONE Stop: 02/06/17 10:18 Fentanyl (Sublimaze) 50 mcg IVPUSH SEECOMMENT PRN PRN Reason: Pain (moderate 4-6) Fentanyl (Sublimaze) Confirm Administered Dose 100 mcg .ROUTE .STK-MED ONE Stop: 02/06/17 13:01 Last Admin: 02/06/17 14:03 Dose: Not Given Gadobutrol (Gadavist) 7.5 ml IVPUSH ONETIME STA Stop: 02/06/17 15:50 Last Admin: 02/06/17 15:50 Dose: 7.5 ml Hydromorphone HCl (Dilaudid) Confirm Administered Dose 2 mg .ROUTE .STK-MED ONE Stop: 02/06/17 10:38 Lactated Ringer's (Ringers, Lactated) 1,000 mls @ 100 mls/hr IV ASDIRECTED [facility] Last Admin: 02/06/17 06:02 Dose: 100 mls/hr Cefazolin Sodium/Dextrose 2 gm (/ Premix) 50 mls @ 100 mls/hr IV ONCALL [facility] Cefazolin Sodium/Dextrose (Ancef) Confirm Administered Dose 100 mls @ as directed .ROUTE .STK-MED ONE Stop: 02/06/17 10:18 Levetiracetam (Keppra) 500 mg PO BID [facility] Last Admin: 02/07/17 08:39 Dose: 500 mg Lidocaine HCl (Xylocaine 1%) Confirm Administered Dose 50 ml .ROUTE .STK-MED ONE Stop: 02/06/17 07:27 Midazolam HCl (Versed 1 Mg/Ml) Confirm Administered Dose 2 mg .ROUTE .STK-MED ONE Stop: 02/06/17 10:18 Ondansetron HCl (Zofran) Confirm Administered Dose 4 mg .ROUTE .STK-MED ONE Stop: 02/06/17 10:18 Propofol (Diprivan 20 Ml) Confirm Administered Dose 200 mg .ROUTE .STK-MED ONE Stop: 02/06/17 10:18 Propofol (Diprivan 20 Ml) Confirm Administered Dose 200 mg .ROUTE .STK-MED ONE Stop: 02/06/17 11:24 *Q Meaningful Use (DIS) - VTE *Q VTE Criteria *Q: - Stroke *Q Stroke Criteria *Q: - AMI *Q AMI Criteria *Q:
[2017-02-07 11:00] VITALS: BP 131/68
--- NOTE | 2017-02-07 11:58 | PCM.SN ---
- Free Text/Narrative Note: pt up, dressed in bed pain controlled no further seizure activity outpt appointments have been arranged by hospitalist service dressing clean, dry, intact no drainage or erythema LLE - at/ehl/gastroc 03/10, dp 2+, sensation intact distally POD#1 L knee arthroscopy seizure okay to discharge from ortho d/ch instructions discussed with patient will follow up on scheduled post-op appt date
--- NOTE | 2017-02-07 13:34 | MR ---
EXAMINATION: MRI of the brain with and without contrast. TECHNIQUE: Multiplanar and multisequence imaging of the brain without and following the administrati on of 7.5 mL of Gadavist. HISTORY: Seizure. FINDINGS: Cerebral hemispheres and the deep nuclei are without hemorrhage, mass, edema, gliosis, enhancement o r atrophy. No extraaxial collections or hemorrhage. The ventricular system is of normal size and configuration without hydrocephalus. The brainstem and cerebellum are without hemorrhage, mass, colton ma, gliosis, enhancement or atrophy. The carotid basilar artery flow voids are intact. No abnormal diffusion restriction. The otomastoid airspaces are clear. No internal auditory canal or cerebellopontine angle masses or enhancement. The paranasal sinuses are clear. The globes, optic nerves, orbital apices, optic miller sm, optic tracts, and visual cortices are unremarkable. Pituitary and sella turcica are unremarka ble. No meningeal enhancement. The craniocervical junction is unremarkable. No siderosis or evide nce of vascular malformation. The calvarium is intact. There is a 1.4 cm enhancing cystic nodule wi thin the subcutaneous tissues of the right nuchal region. IMPRESSION: 1. No acute intracranial findings. 2. There is a 1.4 cm subcutaneous enhancing cystic nodule within the right nuchal region, correlate clinically.
== END 2017-02-07 12:00 | disposition home or self-care (01) ==
LOC: MW.SDS 08:29 → MW.ICU 13:39 → INTOOBSV 13:39
PROVIDERS: ADMIT Internal Medicine; ATTEND Internal Medicine
PROC: 0SBD4ZZ Excision of Left Knee Joint, Percutaneous Endoscopic Approach (ICD-10-PCS; principal; 2017-02-06)
DX: S83.242A Other tear of medial meniscus, current injury, left knee, initial encounter (principal); M94.262 Chondromalacia, left knee; M17.12 Unilateral primary osteoarthritis, left knee; G40.409 Other generalized epilepsy and epileptic syndromes, not intractable, without status epilepticus; E66.9 Obesity, unspecified; Z98.51 Tubal ligation status; Z90.89 Acquired absence of other organs; Z98.890 Other specified postprocedural states; Z68.38 Body mass index [BMI] 38.0-38.9, adult
CPT/HCPCS: 29881; 36415; 70553; 80048; 80053; 81001; 83735; 84146; 84703; 85025; 88304; 93005; A9270; A9585; G0378; J0690; J1100; J1170; J2250; J2405; J3010; J3360; J7120; 01400; J2704

== ENCOUNTER 2017-04-16 13:32 | Observation (INO) | payer BC, OTHER ==
[2017-04-16] MEDS ORDERED: Ketorolac 30 MG/ML SDV IVPUSH ONE (13:55)
[2017-04-16] MEDS ORDERED: Ondansetron 4 MG/2 ML SDV IVPUSH ONE (13:55)
[2017-04-16] MEDS ORDERED: Morphine 2 MG/ML Syringe IVPUSH ONE ×3 (13:55→17:25)
[2017-04-16] MEDS ORDERED: Sodium Chloride 0.9% 1,000 ML IV ONE (13:55)
--- NOTE | 2017-04-16 14:27 | EDM.PDOC ---
ED HPI GENERAL MEDICAL PROBLEM - General Chief Complaint: Abdominal Pain Stated Complaint: PT HAS STOMACH PAINS Time Seen by Provider: 04/16/17 13:55 Source of Information: Reports: Patient History Limitations: Reports: No Limitations - History of Present Illness INITIAL COMMENTS - FREE TEXT/NARRATIVE: History of present illness: [27-year-old female comes in complaining of acute abdominal pain. Patient indicates she was spent all day yesterday and [facility] and they indicated she had some nature of the gastritis. Patient indicates she was called this morning and told not to fill certain medication and to either come to us or [place] for further evaluation and workup.] Review of systems: As per history of present illness and below otherwise all systems reviewed and negative. Past medical history: As per history of present illness and as reviewed below otherwise noncontributory. Surgical history: As per history of present illness and as reviewed below otherwise noncontributory. Social history: No reported history of drug or alcohol abuse. Family history: As per history of present illness and as reviewed below otherwise noncontributory. Physical exam: HEENT: Atraumatic, normocephalic, pupils reactive, negative for conjunctival pallor or scleral icterus, mucous membranes moist, throat clear, neck supple, nontender, trachea midline. Lungs: Clear to auscultation, breath sounds equal bilaterally, chest nontender. Heart: S1S2, regular, negative for clicks, rubs, or JVD. Abdomen: Soft, nondistended, nontender. Negative for masses or hepatosplenomegaly. Negative for costovertebral tenderness. Pelvis: Stable nontender. Genitourinary: Deferred. Rectal: Deferred. Extremities: Atraumatic, negative for cords or calf pain. Neurovascular unremarkable. Neuro: Awake, alert, oriented. Cranial nerves II through XII unremarkable. Cerebellum unremarkable. Motor and sensory unremarkable throughout. Exam nonfocal. Pelvic exam deferred by patient's request secondary to stable H&H Diagnostics: [CBC, CMP] Therapeutics: [IV fluid, morphine, Zofran] Impression: [Vaginal bleeding] Plan: [Follow-up with [facility]] Definitive disposition and diagnosis as appropriate pending reevaluation and review of above. 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: Endocrine/Metabolic History: Reports: Obesity/BMI 30+ - Past Surgical History Head Surgeries/Procedures: Reports: None HEENT Surgical History: Reports: Tonsillectomy Female Surgical History: Reports: Section, Tubal Ligation Musculoskeletal Surgical History: Reports: Arthroscopic Knee, Carpal Tunnel Social & Family History - Family History Family Medical History: Noncontributory - Tobacco Use Smoking Status *Q: Never Smoker Second Hand Smoke Exposure: No - Caffeine Use Caffeine Use: Reports: Coffee, Tea - Alcohol Use Days Per Week of Alcohol Use: 1 Number of Drinks Per Day: 2 Total Drinks Per Week: 2 - Recreational Drug Use Recreational Drug Use: No Drug Use in Last 12 Months: No ED ROS GENERAL - Review of Systems Review Of Systems: See Below (See history of present illness) ED EXAM, GI/ABD - Physical Exam Exam: See Below (See history of present illness) Course - Vital Signs Last Recorded V/S: Last Vital Signs Temp 36.4 C 04/16/17 13:52 Pulse 99 04/16/17 13:52 Resp 20 04/16/17 13:52 BP 154/101 H 04/16/17 13:52 Pulse Ox 97 04/16/17 13:52 - Orders/Labs/Meds Orders: Active Orders 24 hr Category Date Time Status CMP [COMPREHENSIVE METABOLIC PN,CMP] [CHEM] Stat Lab 04/16/17 14:09 Ordered Sodium Chloride 0.9% [Normal Saline] 1,000 ml Med 04/16/17 13:55 Ordered IV STAT Medication Orders Sodium Chloride (Normal Saline) 1,000 mls @ 999 mls/hr IV STAT ONE Stop: 04/16/17 14:55 Last Admin: 04/16/17 14:13 Dose: 999 mls/hr Labs: Laboratory Tests 04/16/17 Range/Units 14:19 WBC 5.67 (4.0-11.0) K/uL RBC 4.55 (4.30-5.90) M/uL Hgb 13.8 (12.0-16.0) g/dL Hct 40.0 (36.0-46.0) % MCV 87.9 (80.0-98.0) fL MCH 30.3 (27.0-32.0) pg MCHC 34.5 (31.0-37.0) g/dL RDW Std Deviation 41.2 (28.0-62.0) fl RDW Coeff of Leanne 13 (11.0-15.0) % Plt Count 213 (150-400) K/uL MPV 10.70 (7.40-12.00) fL Neut % (Auto) 65.5 (48.0-80.0) % Lymph % (Auto) 21.2 (16.0-40.0) % [place] % (Auto) 9.9 (0.0-15.0) % Eos % (Auto) 3.2 (0.0-7.0) % Baso % (Auto) 0.2 (0.0-1.5) % Neut # (Auto) 3.7 (1.4-5.7) K/uL Lymph # (Auto) 1.2 (0.6-2.4) K/uL [place] # (Auto) 0.6 (0.0-0.8) K/uL Eos # (Auto) 0.2 (0.0-0.7) K/uL Baso # (Auto) 0.0 (0.0-0.1) K/uL Nucleated RBC % 0.0 /100WBC Nucleated RBCs # 0 K/uL Meds: Medications Generic Name Dose Route Start Last Admin Trade Name Freq PRN Reason Stop Dose Admin Sodium Chloride 1,000 mls @ 999 mls/hr 04/16/17 13:55 04/16/17 14:13 Normal Saline IV 04/16/17 14:55 999 mls/hr STAT ONE Administration Discontinued Medications Generic Name Dose Route Start Last Admin Trade Name Freq PRN Reason Stop Dose Admin Ketorolac Tromethamine 30 mg 04/16/17 13:55 04/16/17 14:15 Toradol IVPUSH 04/16/17 13:56 30 mg ONETIME ONE Administration Morphine Sulfate 2 mg 04/16/17 13:55 04/16/17 14:16 Morphine IVPUSH 04/16/17 13:56 2 mg ONETIME ONE Administration Ondansetron HCl 8 mg 04/16/17 13:55 04/16/17 14:13 Zofran IVPUSH 04/16/17 13:56 8 mg ONETIME ONE Administration Departure - Departure Time of Disposition: 14:29 Disposition: Home, Self-Care 01 Condition: good Clinical Impression: Vaginal discharge, non-hemorrhagic - Discharge Information Forms: ED Department Discharge Additional Instructions: The following information is given to patients seen in the emergency department who are being discharged to home. This information is to outline your options for follow-up care. We provide all patients seen in our emergency department with a follow-up referral. The need for follow-up, as well as the timing and circumstances, are variable depending upon the specifics of your emergency department visit. If you don't have a primary care physician on staff, we will provide you with a referral. We always advise you to contact your personal physician following an emergency department visit to inform them of the circumstance of the visit and for follow-up with them and/or the need for any referrals to a consulting specialist. The emergency department will also refer you to a specialist when appropriate. This referral assures that you have the opportunity for follow-up care with a specialist. All of these measure are taken in an effort to provide you with optimal care, which includes your follow-up. Under all circumstances we always encourage you to contact your private physician who remains a resource for coordinating your care. When calling for follow-up care, please make the office aware that this follow-up is from your recent emergency room visit. If for any reason you are refused follow-up, please contact the [facility] Emergency Department at and asked to speak to the emergency department charge nurse. Her H&H was stable as discussed Follow-up with [facility] as prescheduled Return to ED as needed as discussed - My Orders Last 24 Hours: My Active Orders 04/16/17 13:55 Sodium Chloride 0.9% [Normal Saline] 1,000 ml IV STAT 04/16/17 14:09 CMP [COMPREHENSIVE METABOLIC PN,CMP] [CHEM] Stat - Assessment/Plan Last 24 Hours: My Active Orders 04/16/17 13:55 Sodium Chloride 0.9% [Normal Saline] 1,000 ml IV STAT 04/16/17 14:09 CMP [COMPREHENSIVE METABOLIC PN,CMP] [CHEM] Stat
[2017-04-16 14:51] LABS: CHLORIDE,CL 111 mmol/L (98-110); SODIUM,NA 138 mmol/L (136-146)
[2017-04-16] MEDS ORDERED: Ciprofloxacin in D5W 400 MG in Premix Bag 1 BAG IV STA ×2 (15:36)
[2017-04-16] MEDS ORDERED: metroNIDAZOLE/Normal Saline 500 MG in Premix Bag 1 BAG IV ONE (15:36)
[2017-04-16] MEDS: Morphine 2 MG/ML Syringe IVPUSH PRN (20:40)
[2017-04-16] MEDS: Sodium Chloride 0.9% 1,000 ML IV SCH (20:41)
--- NOTE | 2017-04-16 23:15 | PCM.HP ---
H&P History of Present Illness - History of Present Illness Initial Comments - Free Text/Narative: 47 yo female with four day history of abdominal pain, nausea and diarrhea. She was seen in [place] yesterday. She had a CT scan of abdomen which reported colitis of descending colon and her stool was negative for c.diff toxin. She was sent home. Due to the persistent lower abdominal pain she presented to the ED in [place]. She denies any fevers or vomiting. 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) Other OB/BYN History: Tubal ligation Neurological History: Reports: Migraines, Seizure Endocrine/Metabolic History: Reports: Obesity/BMI 30+ - Infectious Disease History Infectious Disease History: Reports: Chicken Pox, MRSA - Past Surgical History Head Surgeries/Procedures: Reports: None HEENT Surgical History: Reports: Tonsillectomy GI Surgical History: Reports: None Female Surgical History: Reports: Section, Tubal Ligation Musculoskeletal Surgical History: Reports: Arthroscopic Knee, Carpal Tunnel Social & Family History - Family History Family Medical History: Noncontributory Cardiac: Reports: Hypertension, [place], Other (See Below) Other Cardiac Family History: Unknown "heart disease" Respiratory: Reports: COPD Endocrine/Metabolic: Reports: Diabetes, type II - Tobacco Use Smoking Status *Q: Never Smoker Second Hand Smoke Exposure: No - Caffeine Use Caffeine Use: Reports: Soda, Tea - Alcohol Use Days Per Week of Alcohol Use: 1 Number of Drinks Per Day: 2 Total Drinks Per Week: 2 - Recreational Drug Use Recreational Drug Use: No Drug Use in Last 12 Months: No H&P Review of Systems - Review of Systems: Review Of Systems: ROS reveals no pertinent complaints other than HPI. Exam - Exam Exam: See Below - Vital Signs Vital Signs: Last Vital Signs Temp 36.4 C 04/16/17 20:00 Pulse 64 04/16/17 20:00 Resp 16 04/16/17 20:00 BP 128/70 04/16/17 20:00 Pulse Ox 97 04/16/17 20:00 Weight: 103.283 kg - Exam General: Alert, Oriented, 4 HEENT: Conjunctiva Clear, Mucosa Moist & [place] Neck: Supple, Trachea Midline, 2 Lungs: Clear to Auscultation, Normal Respiratory Effort Cardiovascular: Regular Rate, Regular Rhythm Abdomen: Normal Bowel Sounds, Soft, Tenderness (suprapubic tenderness) Extremities: 3, Normal Inspection, 10 Skin: Warm, Dry, Intact Neurological: No: Focal Deficit Neuro Extensive - Mental Status: Alert, Oriented x3, Normal Mood/Affect, Normal Cognition - Patient Data Result Diagrams: 04/16/17 14:19 04/16/17 14:19 *Q Meaningful Use (ADM) - VTE *Q VTE Criteria *Q: - Stroke *Q Stroke Criteria *Q: - AMI *Q AMI Criteria *Q: Problem List Initiated/Reviewed/Updated: Yes Orders Last 24hrs: Active Orders 24 hr Category Date Time Status Antiembolic Devices [RC] PER UNIT ROUTINE Care 04/16/17 23:09 Ordered Intake and Output [RC] QSHIFT Care 04/16/17 23:08 Ordered Oxygen Therapy [RC] PRN Care 04/16/17 23:08 Ordered Up ad Cristina [RC] ASDIRECTED Care 04/16/17 23:08 Ordered VTE/DVT Education [RC] PER UNIT ROUTINE Care 04/16/17 23:08 Ordered Vital Signs [RC] Q4H Care 04/16/17 23:08 Ordered CBC WITH AUTO DIFF [HEME] AM Lab 04/17/17 05:11 Ordered CBC WITH AUTO DIFF [HEME] AM Lab 04/18/17 05:11 Ordered CBC WITH AUTO DIFF [HEME] AM Lab 04/19/17 05:11 Ordered COMPREHENSIVE METABOLIC PN,CMP [CHEM] AM Lab 04/17/17 05:11 Ordered Ciprofloxacin in D5W [Cipro in D5W 400 MG/200 ML] 400 Med 04/17/17 04:00 Ordered mg Premix Bag 1 bag IV Q12H Morphine Med 04/16/17 19:29 Active 2 mg IVPUSH Q2H PRN Ondansetron [Zofran] Med 04/16/17 23:08 Ordered 4 mg IVPUSH Q4H PRN Sodium Chloride 0.9% [Normal Saline] 1,000 ml Med 04/16/17 19:30 Active IV ASDIRECTED metroNIDAZOLE/Normal Saline [Flagyl 500 MG in NS 100 ML Med 04/17/17 00:00 Ordered ] 250 mg Premix Bag 1 bag IV QID Sequential Compression Device [OM.PC] Per Unit Routine Oth 04/16/17 23:08 Ordered Resuscitation Status Routine Resus Stat 04/16/17 23:08 Ordered Medication Orders Sodium Chloride (Normal Saline) 1,000 mls @ 125 mls/hr IV ASDIRECTED CHRISTINE Last Admin: 04/16/17 20:41 Dose: 125 mls/hr Ciprofloxacin/Dextrose 400 mg/ (Premix) 200 mls @ 200 mls/hr IV Q12H CHRISTINE Metronidazole 250 mg/ Premix 50 mls @ 50 mls/hr IV QID CHRISTINE Morphine Sulfate (Morphine) 2 mg IVPUSH Q2H PRN PRN Reason: Pain Last Admin: 04/16/17 20:40 Dose: 2 mg Assessment/Plan Comment:: 47 yo female admitted for colitis. Will treat with bowel rest IV fluids and Ciprofloxacin and Flagyl.
[2017-04-17] MEDS ORDERED: metroNIDAZOLE/Normal Saline 250 MG in Premix Bag 1 BAG IV SCH ×2
[2017-04-17] MEDS ORDERED: metroNIDAZOLE/Normal Saline 100 ML ONE (00:03)
[2017-04-17] MEDS: Morphine 2 MG/ML Syringe IVPUSH PRN ×6 (00:10→23:32)
[2017-04-17] MEDS: metroNIDAZOLE/Normal Saline 500 MG in Premix Bag 1 BAG IV SCH ×5 (00:12→23:24)
[2017-04-17] MEDS: Ciprofloxacin in D5W 400 MG in Premix Bag 1 BAG IV SCH ×4 (04:11→15:33)
[2017-04-17] MEDS: Ondansetron 4 MG/2 ML SDV IVPUSH PRN ×3 (05:04→13:38)
[2017-04-17 06:36] LABS: CHLORIDE,CL 113 mmol/L (98-110); SODIUM,NA 140 mmol/L (136-146)
[2017-04-17] MEDS: Sodium Chloride 0.9% 1,000 ML IV SCH ×2 (06:54→17:38)
[2017-04-17] MEDS ORDERED: Metoclopramide 10 MG/2 ML SDV IVPUSH PRN (11:51)
[2017-04-17] MEDS: Acetaminophen 325 MG Tab PO PRN ×2 (12:18→19:43)
--- NOTE | 2017-04-17 14:45 | PCM.PN ---
- Review of Systems Systems Review Comment:: abdominal pain improving, reports headache - Patient Data Vitals - most recent: Last Vital Signs Temp 36.1 C 04/17/17 12:00 Pulse 68 04/17/17 12:00 Resp 22 H 04/17/17 12:00 BP 138/90 04/17/17 12:00 Pulse Ox 95 04/17/17 12:00 Weight - most recent: 103.283 kg I&O - last 24 hours: Intake & Output 04/16/17 04/17/17 04/17/17 22:59 06:59 14:59 Intake Total 1200 100 Output Total 0 Balance 1200 100 Lab Results last 24 hrs: Laboratory Results - last 24 hr 04/17/17 04/17/17 Range/Units 05:57 05:57 WBC 4.42 (4.0-11.0) K/uL RBC 3.97 L (4.30-5.90) M/uL Hgb 12.2 (12.0-16.0) g/dL Hct 35.1 L (36.0-46.0) % MCV 88.4 (80.0-98.0) fL MCH 30.7 (27.0-32.0) pg MCHC 34.8 (31.0-37.0) g/dL RDW Std Deviation 41.7 (28.0-62.0) fl RDW Coeff of Leanne 13 (11.0-15.0) % Plt Count 156 (150-400) K/uL MPV 11.30 (7.40-12.00) fL Neut % (Auto) 52.7 (48.0-80.0) % Lymph % (Auto) 31.2 (16.0-40.0) % [place] % (Auto) 10.0 (0.0-15.0) % Eos % (Auto) 5.2 (0.0-7.0) % Baso % (Auto) 0.9 (0.0-1.5) % Neut # (Auto) 2.3 (1.4-5.7) K/uL Lymph # (Auto) 1.4 (0.6-2.4) K/uL [place] # (Auto) 0.4 (0.0-0.8) K/uL Eos # (Auto) 0.2 (0.0-0.7) K/uL Baso # (Auto) 0.0 (0.0-0.1) K/uL Nucleated RBC % 0.0 /100WBC Nucleated RBCs # 0 K/uL Sodium 140 (136-146) mmol/L Potassium 3.8 (3.5-5.1) mmol/L Chloride 113 H (98-110) mmol/L Carbon Dioxide 22 (21-31) mmol/L BUN 7 (6.0-23.0) mg/dL Creatinine 0.7 (0.6-1.5) mg/dL Est Cr Clr Drug Dosing 87.48 mL/min Estimated GFR (MDRD) > 60.0 ml/min Glucose 98 (60-110) mg/dL Calcium 7.9 L (8.8-10.8) mg/dL Total Bilirubin 0.4 (0.1-1.5) mg/dL AST 19 (5-40) IU/L ALT 26 (8-54) IU/L Alkaline Phosphatase 61 (40-150) Total Protein 5.3 L (6.0-8.0) g/dL Albumin 3.5 (3.5-5.0) g/dL Globulin 1.8 L (2.0-3.5) g/dL Albumin/Globulin Ratio 1.9 (1.3-2.8) Reggie Results last 24 hrs: Microbiology 04/17/17 13:25 Clostridium difficile Toxin A&B (M) - Final Stool / Feces Negative for C.Diff Toxin/AG 04/17/17 13:25 Campylobacter Antigen Assay - Final Stool / Feces NEGATIVE CAMPYLOBACTER AG 04/17/17 13:25 Stool for WBCs - Final Stool / Feces POSITIVE FOR WBC'S Med Orders - Current: Current Medications Acetaminophen (Tylenol) 650 mg PO Q4H PRN PRN Reason: Pain Last Admin: 04/17/17 12:18 Dose: 650 mg Sodium Chloride (Normal Saline) 1,000 mls @ 125 mls/hr IV ASDIRECTED CHRISTINE Last Admin: 04/17/17 06:54 Dose: 125 mls/hr Ciprofloxacin/Dextrose 400 mg/ (Premix) 200 mls @ 200 mls/hr IV Q12H [facility] Last Admin: 04/17/17 04:11 Dose: 200 mls/hr Metronidazole 500 mg/ Premix 100 mls @ 100 mls/hr IV QID CHRISTINE Last Admin: 04/17/17 11:48 Dose: 100 mls/hr Metoclopramide HCl (Reglan) 5 mg IVPUSH Q4H PRN PRN Reason: Nausea Last Admin: 04/17/17 12:18 Dose: 5 mg Morphine Sulfate (Morphine) 2 mg IVPUSH Q2H PRN PRN Reason: Pain Last Admin: 04/17/17 13:38 Dose: 2 mg Ondansetron HCl (Zofran) 4 mg IVPUSH Q4H PRN PRN Reason: Nausea Last Admin: 04/17/17 13:38 Dose: 4 mg Discontinued Medications Sodium Chloride (Normal Saline) 1,000 mls @ 999 mls/hr IV STAT ONE Stop: 04/16/17 14:55 Last Admin: 04/16/17 14:13 Dose: 999 mls/hr Ciprofloxacin/Dextrose 400 mg/ (Premix) 200 mls @ 200 mls/hr IV ONETIME STA Stop: 04/16/17 16:35 Last Admin: 04/16/17 15:45 Dose: 200 mls/hr Metronidazole 500 mg/ Premix 100 mls @ 100 mls/hr IV ONETIME ONE Stop: 04/16/17 16:35 Last Admin: 04/16/17 16:58 Dose: 100 mls/hr Metronidazole 250 mg/ Premix 50 mls @ 50 mls/hr IV QID CHRISTINE Stop: 04/17/17 00:07 Last Admin: 04/17/17 00:11 Dose: Not Given Metronidazole (Flagyl 500 Mg In Ns 100 Ml) Confirm Administered Dose 100 mls @ as directed .ROUTE .STK-MED ONE Stop: 04/17/17 00:04 Last Admin: 04/17/17 00:11 Dose: Not Given Ketorolac Tromethamine (Toradol) 30 mg IVPUSH ONETIME ONE Stop: 04/16/17 13:56 Last Admin: 04/16/17 14:15 Dose: 30 mg Morphine Sulfate (Morphine) 2 mg IVPUSH ONETIME ONE Stop: 04/16/17 13:56 Last Admin: 04/16/17 14:16 Dose: 2 mg Morphine Sulfate (Morphine) 4 mg IVPUSH ONETIME ONE Stop: 04/16/17 15:38 Last Admin: 04/16/17 15:44 Dose: 4 mg Morphine Sulfate (Morphine) 4 mg IVPUSH ONETIME ONE Stop: 04/16/17 17:26 Last Admin: 04/16/17 17:37 Dose: 4 mg Ondansetron HCl (Zofran) 8 mg IVPUSH ONETIME ONE Stop: 04/16/17 13:56 Last Admin: 04/16/17 14:13 Dose: 8 mg - Exam General: alert, oriented Neck: supple Lungs: Clear to auscultation, Normal respiratory effort Cardiovascular: Regular Rate, Regular Rhythm Abdomen: tenderness (lower quadrants). No: no distension, rebound, guarding Extremities: no edema Skin: warm, dry, intact Neurological: No: no new focal deficit - Problem List Review Problem List Initiated/Reviewed/Updated: Yes - My Orders Last 24 Hours: My Active Orders 04/16/17 19:29 Morphine 2 mg IVPUSH Q2H PRN 04/16/17 19:30 Sodium Chloride 0.9% [Normal Saline] 1,000 ml IV ASDIRECTED 04/16/17 23:08 Intake and Output [RC] Q12H Oxygen Therapy [RC] PRN Up ad Cristina [RC] ASDIRECTED Vital Signs [RC] Q4H Ondansetron [Zofran] 4 mg IVPUSH Q4H PRN Sequential Compression Device [OM.PC] Per Unit Routine Resuscitation Status Routine 04/16/17 23:09 Antiembolic Devices [RC] PER UNIT ROUTINE 04/17/17 00:15 metroNIDAZOLE/Normal Saline [Flagyl 500 MG in NS 100 ML] 500 mg Premix Bag 1 bag IV QID 04/17/17 04:00 Ciprofloxacin in D5W [Cipro in D5W 400 MG/200 ML] 400 mg Premix Bag 1 bag IV Q12H 04/17/17 11:51 Metoclopramide [Reglan] 5 mg IVPUSH Q4H PRN 04/17/17 11:52 Acetaminophen [Tylenol] 650 mg PO Q4H PRN 04/17/17 13:25 CULTURE STOOL + CAMPY+SHIGATOX [RM] Routine 04/17/17 Lunch Clear Liquid Diet [DIET] 04/18/17 05:11 CBC WITH AUTO DIFF [HEME] AM 04/19/17 05:11 CBC WITH AUTO DIFF [HEME] AM - Plan Plan:: 47 yo female admitted for colitis. We will start clear liquids. Will continue IV fluids and Ciprofloxacin and Flagyl.
[2017-04-18] MEDS: Ciprofloxacin in D5W 400 MG in Premix Bag 1 BAG IV SCH ×2 (03:12)
[2017-04-18] MEDS: Sodium Chloride 0.9% 1,000 ML IV SCH (03:16)
[2017-04-18] MEDS: Morphine 2 MG/ML Syringe IVPUSH PRN ×2 (05:08→08:04)
[2017-04-18] MEDS: metroNIDAZOLE/Normal Saline 500 MG in Premix Bag 1 BAG IV SCH (05:43)
[2017-04-18] MEDS: Ondansetron 4 MG/2 ML SDV IVPUSH PRN (08:04)
[2017-04-18 09:19] VITALS: BP 132/79
--- NOTE | 2017-04-18 11:04 | PCM.DCSUM1 ---
Discharge Summary - Hospital Course Brief History: This 47 year old female with a four day history of abdominal pain , nausea and diarrhea. She was seen in [place] 04/15/2017. She had a CT scan of abdomen which reported colitis of descending colon and her stool was negative for c.diff toxin. She was sent home. Due to the persistent lower abdominal pain she presented to the ED in [place]. She denies any fevers or vomiting. - Discharge Data Discharge Date: 04/18/17 Discharge Disposition: Home, Self-Care 01 Condition: Good - Patient Instructions Diet: GI Soft/Low Residue/Low Fiber (slowly increase to regular diet over next few days) Activity: As Tolerated Driving: May Drive Today Showering/Bathing: May Shower Notify Provider of: Fever, Increased Pain, Swelling and Redness, Drainage, Nausea and/or Vomiting - Discharge Plan Prescriptions/Med Rec: Ciprofloxacin HCl [Cipro] 500 mg PO BID #17 tablet metroNIDAZOLE [Flagyl] 500 mg PO Q8H #26 tablet Home Medications: Home Meds Omeprazole 20 mg PO DAILY 04/16/17 [History] Acetaminophen [Tylenol] 650 mg PO Q4H PRN #0 tablet 04/18/17 [Rx] Ciprofloxacin HCl [Cipro] 500 mg PO BID #17 tablet 04/18/17 [Rx] metroNIDAZOLE [Flagyl] 500 mg PO Q8H #26 tablet 04/18/17 [Rx] Patient Handouts: Ciprofloxacin tablets, Metronidazole tablets or capsules Referrals: [facility] [Outside] Roe Sousa MD [Physician] - 04/28/17 8:30 am (For outpatient colonoscopy.) - Discharge Summary/Plan Comment DC Time >30 min.: No Discharge Summary/Plan Comment: Discharge diagnoses: Colitis Abdominal pain Letha was admitted and treated with bowel rest, Ciprofloxacin and Flagyl. Her diet was slowly advanced as abdominal pain subsided. All stool cultures negative. Today she tolerated soft diet and abdominal pain is minimal and is eager for discharge home. I will send her home with 8 more days of Ciprofloxacin and Flagyl. Follow up appointment to be arranged with PCP as well as General surgeon for colonoscopy. She is to return to clinic or ED if concerns should arise. - General Info Date of Service: 04/18/17 Admission Dx/Problem (Free Text: Colitis Subjective Update: Feeling much better this am, eager for more diet. and would like to go home today. Denies chest pain or SOB. Abdominal pain is minimal, only notices it when she needs to have BM. Functional Status: Reports: pain controlled, tolerating diet, ambulating, urinating - Review of Systems General: Reports: No Symptoms. Denies: Fever HEENT: Reports: no symptoms. Denies: sinus congestion, sore throat Pulmonary: Reports: no symptoms. Denies: shortness of breath Cardiovascular: Reports: No Symptoms. Denies: Chest Pain, Palpitations Gastrointestinal: Reports: Abdominal pain (only before BM), Flatus. Denies: Nausea, Vomiting Genitourinary: Reports: no symptoms. Denies: dysuria, frequency, burning Neurological: Reports: No Symptoms Psychiatric: Reports: no symptoms - Patient Data Vitals - Most Recent: Last Vital Signs Temp 97.3 F 04/18/17 08:00 Pulse 68 04/18/17 08:00 Resp 12 04/18/17 08:00 BP 132/79 04/18/17 08:00 Pulse Ox 97 04/18/17 08:00 Weight - Most Recent: 103.283 kg I&O - Last 24 hours: Intake & Output 04/17/17 04/18/17 04/18/17 22:59 06:59 14:59 Intake Total 1299 3627 Output Total 2000 Balance 1299 1627 Lab Results - Last 24 hrs: Laboratory Results - last 24 hr 04/18/17 Range/Units 04:15 WBC 3.71 L (4.0-11.0) K/uL RBC 3.81 L (4.30-5.90) M/uL Hgb 11.2 L (12.0-16.0) g/dL Hct 33.8 L (36.0-46.0) % MCV 88.7 (80.0-98.0) fL MCH 29.4 (27.0-32.0) pg MCHC 33.1 (31.0-37.0) g/dL RDW Std Deviation 41.3 (28.0-62.0) fl RDW Coeff of Leanne 13 (11.0-15.0) % Plt Count 184 (150-400) K/uL MPV 10.40 (7.40-12.00) fL Neut % (Auto) 43.3 L (48.0-80.0) % Lymph % (Auto) 41.0 H (16.0-40.0) % Titus % (Auto) 10.0 (0.0-15.0) % Eos % (Auto) 5.4 (0.0-7.0) % Baso % (Auto) 0.3 (0.0-1.5) % Neut # (Auto) 1.6 (1.4-5.7) K/uL Lymph # (Auto) 1.5 (0.6-2.4) K/uL Titus # (Auto) 0.4 (0.0-0.8) K/uL Eos # (Auto) 0.2 (0.0-0.7) K/uL Baso # (Auto) 0.0 (0.0-0.1) K/uL Nucleated RBC % 0.8 /100WBC Nucleated RBCs # 0 K/uL REENA Results - Last 24 hrs: Microbiology 04/17/17 13:25 Campylobacter Antigen Assay - Final Stool / Feces NEGATIVE CAMPYLOBACTER AG - Final NEGATIVE FOR SHIGA TOXIN 1 - Final NEGATIVE FOR SHIGA TOXIN 2 04/17/17 13:25 Clostridium difficile Toxin A&B (M) - Final Stool / Feces Negative for C.Diff Toxin/AG 04/17/17 13:25 Stool for WBCs - Final Stool / Feces POSITIVE FOR WBC'S Med Orders - Current: Current Medications Acetaminophen (Tylenol) 650 mg PO Q4H PRN PRN Reason: Pain Last Admin: 04/17/17 19:43 Dose: 650 mg Sodium Chloride (Normal Saline) 1,000 mls @ 125 mls/hr IV ASDIRECTED [facility] Last Admin: 04/18/17 03:16 Dose: 125 mls/hr Ciprofloxacin/Dextrose 400 mg/ (Premix) 200 mls @ 200 mls/hr IV Q12H [facility] Last Admin: 04/18/17 03:12 Dose: 200 mls/hr Metronidazole 500 mg/ Premix 100 mls @ 100 mls/hr IV QID [facility] Last Admin: 04/18/17 05:43 Dose: 100 mls/hr Metoclopramide HCl (Reglan) 5 mg IVPUSH Q4H PRN PRN Reason: Nausea Last Admin: 04/17/17 12:18 Dose: 5 mg Morphine Sulfate (Morphine) 2 mg IVPUSH Q2H PRN PRN Reason: Pain Last Admin: 04/18/17 08:04 Dose: 2 mg Ondansetron HCl (Zofran) 4 mg IVPUSH Q4H PRN PRN Reason: Nausea Last Admin: 04/18/17 08:04 Dose: 4 mg Discontinued Medications Sodium Chloride (Normal Saline) 1,000 mls @ 999 mls/hr IV STAT ONE Stop: 04/16/17 14:55 Last Admin: 04/16/17 14:13 Dose: 999 mls/hr Ciprofloxacin/Dextrose 400 mg/ (Premix) 200 mls @ 200 mls/hr IV ONETIME STA Stop: 04/16/17 16:35 Last Admin: 04/16/17 15:45 Dose: 200 mls/hr Metronidazole 500 mg/ Premix 100 mls @ 100 mls/hr IV ONETIME ONE Stop: 04/16/17 16:35 Last Admin: 04/16/17 16:58 Dose: 100 mls/hr Metronidazole 250 mg/ Premix 50 mls @ 50 mls/hr IV QID [facility] Stop: 04/17/17 00:07 Last Admin: 04/17/17 00:11 Dose: Not Given Metronidazole (Flagyl 500 Mg In Ns 100 Ml) Confirm Administered Dose 100 mls @ as directed .ROUTE .STK-MED ONE Stop: 04/17/17 00:04 Last Admin: 04/17/17 00:11 Dose: Not Given Ketorolac Tromethamine (Toradol) 30 mg IVPUSH ONETIME ONE Stop: 04/16/17 13:56 Last Admin: 04/16/17 14:15 Dose: 30 mg Morphine Sulfate (Morphine) 2 mg IVPUSH ONETIME ONE Stop: 04/16/17 13:56 Last Admin: 04/16/17 14:16 Dose: 2 mg Morphine Sulfate (Morphine) 4 mg IVPUSH ONETIME ONE Stop: 04/16/17 15:38 Last Admin: 04/16/17 15:44 Dose: 4 mg Morphine Sulfate (Morphine) 4 mg IVPUSH ONETIME ONE Stop: 04/16/17 17:26 Last Admin: 04/16/17 17:37 Dose: 4 mg Ondansetron HCl (Zofran) 8 mg IVPUSH ONETIME ONE Stop: 04/16/17 13:56 Last Admin: 04/16/17 14:13 Dose: 8 mg - Exam General: Reports: alert, oriented, cooperative, no acute distress Lungs: Reports: Clear to auscultation, Normal respiratory effort Cardiovascular: Reports: Regular Rate, Regular Rhythm Abdomen: Reports: bowel sounds present, soft, no tenderness, no distension Skin: Reports: warm, dry, intact Neurological: Reports: no new focal deficit Psy/Mental Status: Reports: alert, normal affect, normal mood *Q Meaningful Use (DIS) - VTE *Q VTE Criteria *Q: - Stroke *Q Stroke Criteria *Q: - AMI *Q AMI Criteria *Q:
== END 2017-04-18 11:56 | disposition home or self-care (01) ==
LOC: MW.ED 13:32 → MW.MS 16:47
PROVIDERS: ADMIT Internal Medicine; ATTEND Internal Medicine
DX: K52.9 Noninfective gastroenteritis and colitis, unspecified (principal); N89.8 Other specified noninflammatory disorders of vagina; R51 Headache; K21.9 Gastro-esophageal reflux disease without esophagitis; E66.9 Obesity, unspecified; Z68.30 Body mass index [BMI] 30.0-30.9, adult; Z98.890 Other specified postprocedural states; Z98.51 Tubal ligation status; Z88.0 Allergy status to penicillin; Z79.891 Long term (current) use of opiate analgesic; Z79.899 Other long term (current) drug therapy
CPT/HCPCS: 36415; 80053; 81001; 83630; 85025; 87046; 87324; 87899; 96361; 96365; 96366; 96367; 96375; 96376; 99285; A9270; G0378; J0744; J1885; J2270; J2405; J2765; J7040

== ENCOUNTER 2017-06-06 07:03 | Day surgery (SDC) | payer BC, OTHER ==
[~2017-06-06 07:03] MED LIST changes: -Lidocaine 1% 50 ML MDV ONE; -ceFAZolin 2 GM in Premix Bag 1 BAG IV SCH
[2017-06-06] MEDS ORDERED: Propofol 200 MG/20 ML SDV ONE ×3 (07:28→09:02)
[2017-06-06] MEDS ORDERED: Midazolam 1 MG/ML 2 ML SDV ONE (07:28)
[2017-06-06] MEDS ORDERED: fentaNYL 100 MCG/2 ML SDV ONE (07:28)
[2017-06-06] MEDS ORDERED: Lidocaine 2% 5 ML SDV ONE (07:28)
--- NOTE | 2017-06-06 07:50 | PCM.PREANE ---
Preanesthetic Assessment - Anesthesia/Transfusion/Family Hx Anesthesia History: Prior Anesthesia Without Reaction Family History of Anesthesia Reaction: No Transfusion History: No Prior Transfusion(s) Intubation History: Unknown - Review of Systems General: No Symptoms Pulmonary: No Symptoms Cardiovascular: No Symptoms Gastrointestinal: Abdominal Pain Neurological: No Symptoms Other: Reports: None - Physical Assessment O2 Sat by Pulse Oximetry: 100 Respiratory Rate: 16 Vital Signs: Last Vital Signs Temp 36.4 C 06/06/17 07:22 Pulse 54 L 06/06/17 07:22 Resp 16 06/06/17 07:22 BP 144/79 H 06/06/17 07:22 Pulse Ox 100 06/06/17 07:22 Height: 1.65 m Weight: 98.883 kg ASA Class: 2 Mental Status: Alert & Oriented x3 Airway Class: Mallampati = 2 Dentition: Reports: Normal Dentition, Broken Tooth/Teeth Thyro-Mental Finger Breadths: 3 Mouth Opening Finger Breadths: 3 ROM/Head Extension: Full Lungs: Clear to Auscultation, Normal Respiratory Effort Cardiovascular: Regular Rate, Regular Rhythm - Lab Values: Laboratory Last Values Urine HCG, Qual NEGATIVE (NEGATIVE) 06/06/17 07:10 - Allergies Allergies/Adverse Reactions: Allergies Allergy/AdvReac Type Severity Reaction Status Date / Time Penicillins Allergy Rash Verified 04/16/17 13:45 - Blood Blood Available: No - Anesthesia Plan Pre-Op Medication Ordered: None - Acknowledgements Anesthesia Type Planned: MAC Pt an Appropriate Candidate for the Planned Anesthesia: Yes Alternatives and Risks of Anesthesia Discussed w Pt/Guardian: Yes Pt/Guardian Understands and Agrees with Anesthesia Plan: Yes PreAnesthesia Questionnaire - Past Health History Medical/Surgical History: Denies Medical/Surgical History HEENT History: Reports: Hard of Hearing Other HEENT History: hard of hearing left ear Gastrointestinal History: Reports: GERD, Other (See Below) Other Gastrointestinal History: Colitis, h/o peptic ulcer Genitourinary History: Reports: None [employer] History: Reports: , Other (See Below) Other OB/BYN History: Tubal ligation Musculoskeletal History: Reports: Arthritis Neurological History: Reports: Migraines, Other (See Below) (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 (hit her head), questionable seizure post after knee arthroscopy 3 1/ 2 months ago in [place], kept over night for observation) Psychiatric History: Reports: Anxiety Endocrine/Metabolic History: Reports: Obesity/BMI 30+ - Infectious Disease History Infectious Disease History: Reports: Chicken Pox, MRSA - Past Surgical History Head Surgeries/Procedures: Reports: None HEENT Surgical History: Reports: Tonsillectomy GI Surgical History: Reports: None Female Surgical History: Reports: Section, Tubal Ligation Other Female Surgeries/Procedures: c/section x3, tubal ligation Musculoskeletal Surgical History: Reports: Arthroscopic Knee, Carpal Tunnel Other Musculoskeletal Surgeries/Procedures:: rt knee arthroscopy, left knee arthroscopy 3 months ago - SUBSTANCE USE Smoking Status *Q: Never Smoker Tobacco Use Within Last Twelve Months: No Second Hand Smoke Exposure: No Days Per Week of Alcohol Use: 1 Number of Drinks Per Day: 2 Total Drinks Per Week: 2 Recreational Drug Use History: No - HOME MEDS Home Medications: Home Meds Omeprazole 20 mg PO DAILY 04/16/17 [History] Acetaminophen [Tylenol Extra Strength] 2 tab PO ASDIRECTED PRN 06/02/17 [History ] traMADol HCl [Tramadol HCl] 50 mg PO ASDIRECTED PRN 06/02/17 [History] - CURRENT (IN HOUSE) MEDS Current Meds: Current Medications Lactated Ringer's (Ringers, Lactated) 1,000 mls @ 125 mls/hr IV ASDIRECTED [facility] Last Admin: 06/06/17 07:25 Dose: 125 mls/hr Discontinued Medications Fentanyl (Sublimaze) Confirm Administered Dose 100 mcg .ROUTE .STK-MED ONE Stop: 06/06/17 07:29 Lidocaine (Xylocaine-Mpf 2%) Confirm Administered Dose 5 ml .ROUTE .STK-MED ONE Stop: 06/06/17 07:29 Midazolam HCl (Versed 1 Mg/Ml) Confirm Administered Dose 2 mg .ROUTE .STK-MED ONE Stop: 06/06/17 07:29 Propofol (Diprivan 20 Ml) Confirm Administered Dose 400 mg .ROUTE .STK-MED ONE Stop: 06/06/17 07:29
[2017-06-06] MEDS ORDERED: Glycopyrrolate 0.2 MG/ML SDV ONE (08:38)
--- NOTE | 2017-06-06 09:23 | PCM.OPNOTE ---
- General Post-Op/Procedure Note Date of Surgery/Procedure: 06/06/17 Operative Procedure(s): egd w bx. colonoscopy w bx Findings: see dict [id number] Pre Op Diagnosis: resolved colitis Post-Op Diagnosis: gerd, and diverticulosis Anesthesia Technique: Moderate Sedation Primary Surgeon: Roe Sousa Pathology: egd bx random L colon bx Complications: None Condition: Good
[2017-06-06 09:38] VITALS: BP 126/70
--- NOTE | 2017-06-06 10:41 | OR ---
SURGEON: Roe Sousa MD DATE OF PROCEDURE: 06/06/2017 PREOPERATIVE DIAGNOSES: Abdominal pain and colitis. POSTOPERATIVE DIAGNOSES: Gastritis, acid reflux, and diverticulosis. PROCEDURE PERFORMED: 1. Esophagogastroduodenoscopy with biopsy. 2. Colonoscopy with biopsy. DESCRIPTION OF PROCEDURE: EGD: The patient was taken to the endoscopy room, and with the ROUSTABOUT HEAD, Diprivan was administered. A well-lubricated EGD scope was gently inserted through the oropharynx, down the esophagus, passing through the gastroesophageal junction, into the stomach. The mucosa was examined upon the passage. Any etiology will be noted. Once in the stomach, we continued to advance to the distal antrum, passed through the pylorus into the second portion of the duodenum. Again, the mucosa was examined for any abnormality and etiology. The scope was then retrieved back to the stomach and then retroflexed to look at the fundus of the stomach. If a biopsy was indicated, we will biopsy the antrum, body, and gastroesophageal junction. The air will be sucked out while the scope is retrieved to reduce the patient's discomfort. The patient tolerated the procedure well. There were no intraoperative complications. Dr. Sousa was present through the whole procedure. Prior to surgery, a time-out had been called, the patient identified, procedure identified and antibiotic administered. Colonoscopy: The patient was taken to the endoscopy room. A time out was called, patient identified, and procedure identified. Diprivan was then administrated. Patient went from awake to sleep, hearing doctor talking or door closing is normal. Perineum inspection and digital examination were then performed. A well-lubricated colonoscope was gently inserted through the rectum, advanced past the rectosigmoid junction, the descending colon, splenic flexure, transverse colon, hepatic flexure, ascending colon, arrived to the cecum. Cecum was identified as dictated in the finding. Then the scope was carefully withdrawn while attention was paid to the mucosal surface for any abnormality. Air will be sucked out during the scope withdrawal. At the rectum, retroflexed to examine any rectal diseases, fistula or hemorrhoids. During mucosal examination, and random biopsy performed on L colon. Patient tolerated procedure well. There were no intraoperative complications, and Dr. Sousa was present throughout the whole procedure. FINDINGS: EGD findings: 1. The patient is easily sedated with ROUSTABOUT HEAD and Diprivan. The patient is soundly snoring. 2. Oropharynx and proximal esophagus is free of disease, stricture, or inflammation. Distal esophagus at 40 shows moderate amount of salmon- colored change consistent with acid reflux. At one corner, it looked like there may be a healed ulcer, it is not an ulcer, but it looked like a scar of healed ulcer. Stomach rugae is normal in appearance and there is no food, bile, blood, or ulcer observed. Antrum is mildly inflamed and duodenum was grossly normal, and scope retrieved back to the stomach. Retroflexed look at the fundus of stomach, there was no hiatal hernia. Biopsy done at antrum, body, and GE junction at 40, and sucked out the air while scope pulling out. Colonoscopy findings: 1. The patient is easily sedated with ROUSTABOUT HEAD and Diprivan. The patient is soundly snoring and bowel prep is average to above average with very little liquid stool. Colon is rather straight forward. Cecum indicated by ileocecal fold, one-to-one indentation, light emittance. Appendiceal orifice is not observed. Mucosa examined upon scope pulling out with some intermittent irrigation and the patient has moderate amount of diverticulosis on the left colon and no signs or symptoms of diverticulitis or inflammation. The patient does not have polyp, mass, growth, or stricture observed and random biopsy done on the left colon, where the patient has pain, and the patient has internal hemorrhoids and no external hemorrhoids. The patient would benefit from repeat colonoscopy 10 years from today or if clinically or biopsy indicated otherwise. ABISAI / DEENA /[id number] LIDYA
== END 2017-06-06 09:45 | disposition home or self-care (01) ==
LOC: MW.SDS 07:03
PROVIDERS: ATTEND Surgery
DX: K20.9 Esophagitis, unspecified (principal); K57.30 Diverticulosis of large intestine without perforation or abscess without bleeding; F41.9 Anxiety disorder, unspecified; Z98.890 Other specified postprocedural states; Z88.0 Allergy status to penicillin; Z79.899 Other long term (current) drug therapy; Z98.51 Tubal ligation status
CPT/HCPCS: 43239; 45380; 81025; J2250; J3010; J7120; 00740; 88305; 88312; J2704

== ENCOUNTER 2019-06-17 20:38 | Emergency (ER) | payer BC, OTHER ==
[2019-06-17] MEDS ORDERED: Sodium Chloride 0.9% 1,000 ML IV ONE (20:54)
--- NOTE | 2019-06-17 21:08 | EDM.PDOC ---
ED HPI GENERAL MEDICAL PROBLEM - General Chief Complaint: General Stated Complaint: PT IS DISORIENTED Time Seen by Provider: 06/17/19 20:47 Source of Information: Reports: Patient History Limitations: Reports: No Limitations - History of Present Illness INITIAL COMMENTS - FREE TEXT/NARRATIVE: HISTORY AND PHYSICAL: History of present illness: Patient is a 49-year-old female who presents to the emergency room with complaints of feeling disoriented. She states that on 06/13/19 she was in [place] and she had an episode where she felt confused and could not remember certain events. She states this lasted approximately one hour. During this time she had no neurological deficits such as weakness, slurred speech or difficulty with motor function. She denies any drug or alcohol use. States she did not have any unattended drinks. States "I think I had a stroke". The following day (Monday) she had felt well and was able to continue on with the rally events without any concerns. Over the past 2 days she states she continues to feel "out of it" and is having difficulty with her memory. Patient denies any fever, chills, headache, change in vision, syncope or near syncope. Denies any chest pain, back pain, shortness of breath or cough. Denies any abdominal pain, nausea, vomiting, diarrhea, constipation or dysuria. Has not noted any blood in urine or stool. Patient has been eating and drinking appropriately. She states she did have a full workup by her primary care provider approximately 2 weeks ago. Informed that she has elevated cholesterol and an ear infection. Patient does report that she has been on 3 separate antibiotics for chronic left otitis media. Currently taking azithromycin for this and has been referred to an ear nose and throat. Has a follow-up appointment on 07/04/19 for reevaluation. Review of systems: As per history of present illness and below otherwise all systems reviewed and negative. Past medical history: As per history of present illness and as reviewed below otherwise noncontributory. Surgical history: As per history of present illness and as reviewed below otherwise noncontributory. Social history: See social history for further information Family history: As per history of present illness and as reviewed below otherwise noncontributory. Physical exam: General: Well-developed and well-nourished 49-year-old female. Alert and oriented. Nontoxic appearing and in no acute distress. HEENT: Atraumatic, normocephalic, pupils equal and reactive bilaterally, negative for conjunctival pallor or scleral icterus, mucous membranes moist, left TM does have mild erythema with scar tissue noted, right TMs normal, throat clear, neck supple, nontender, trachea midline. No drooling or trismus noted. No meningeal signs. No hot potato voice noted. Lungs: Clear to auscultation, breath sounds equal bilaterally, chest nontender. Heart: S1S2, regular rate and rhythm without overt murmur Abdomen: Soft, nondistended, nontender. Negative for masses or hepatosplenomegaly. Negative for costovertebral tenderness. Pelvis is stable and nontender. Skin: Intact, warm, dry. No lesions or rashes noted. Extremities: Atraumatic, moves all extremities per self without difficulty or deficits, negative for cords or calf pain. Neurovascular unremarkable. Neuro: Awake, alert, oriented. Cranial nerves II through XII unremarkable. Cerebellum unremarkable. Motor and sensory unremarkable throughout. Exam nonfocal. Notes: Lab work is unremarkable. Head CT is normal. EKG shows no acute findings. Vital signs remain stable. Continues to have no neurological deficits. NIH 0, GCS 15. All findings were shared with the patient. Patient states she feels comfortable being discharged to home. She is alert, oriented answering questions appropriately. NIH 0, GCS 15. She states she feels fine right now; but not sure why she has brief episodes of confusion (with nonfocal exam). Supportive care measures were reviewed and discussed. Voices understanding and is agreeable to plan of care. Denies any further questions or concerns at this time. Diagnostics: CBC, CMP, EKG, head CT, TSH, urine drug screen, UA Therapeutics: IV fluid Prescription: None Impression: Encounter for medical screening exam Confusion Plan: 1. Increase your oral fluids. Please get plenty of rest and eat small frequent meals. 2. Follow-up with the ENT specialist for the ear infection. Follow up with PCP and/or neurology as we discussed. 3. Return to the ED as needed as discussed. Definitive disposition and diagnosis as appropriate pending reevaluation and review of above. - Related Data Allergies Allergy/AdvReac Type Severity Reaction Status Date / Time Penicillins Allergy Rash Verified 06/17/19 20:42 Home Meds: Home Meds Levothyroxine 25 mcg PO DAILY 06/17/19 [History] Past Medical History - Past Health History Medical/Surgical History: Denies Medical/Surgical History HEENT History: Reports: Hard of Hearing Other HEENT History: hard of hearing left ear Cardiovascular History: Reports: High Cholesterol, Hypertension Gastrointestinal History: Reports: GERD, Other (See Below) Other Gastrointestinal History: Colitis, h/o peptic ulcer Genitourinary History: Reports: None 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: , Other (See Below) Other COLON AND RECTAL SURGEON History: Tubal ligation Musculoskeletal History: Reports: Arthritis Neurological History: Reports: Migraines, Other (See Below) Psychiatric History: Reports: Anxiety Endocrine/Metabolic History: Reports: Obesity/BMI 30+ - Infectious Disease History Infectious Disease History: Reports: Chicken Pox, MRSA - Past Surgical History HEENT Surgical History: Reports: Tonsillectomy GI Surgical History: Reports: None Female Surgical History: Reports: Section, Tubal Ligation Other Female Surgeries/Procedures: c/section x3, tubal ligation Musculoskeletal Surgical History: Reports: Arthroscopic Knee, Carpal Tunnel Other Musculoskeletal Surgeries/Procedures:: rt knee arthroscopy, left knee arthroscopy 3 months ago Social & Family History - Family History Family Medical History: Noncontributory Cardiac: Reports: Hypertension, [place], Other (See Below) Other Cardiac Family History: Unknown "heart disease" Respiratory: Reports: COPD Endocrine/Metabolic: Reports: Diabetes, type II - Tobacco Use Smoking Status *Q: Never Smoker - Caffeine Use Caffeine Use: Reports: Coffee, Soda - Recreational Drug Use Recreational Drug Use: No ED ROS GENERAL - Review of Systems Review Of Systems: ROS reveals no pertinent complaints other than HPI. ED EXAM, GENERAL - Physical Exam Exam: See Below (See dictation) Course - Vital Signs Last Recorded V/S: Last Vital Signs Temp 96.7 F 06/17/19 20:43 Pulse 65 06/17/19 21:38 Resp 18 06/17/19 21:38 BP 154/91 H 06/17/19 21:38 Pulse Ox 96 06/17/19 21:38 - Orders/Labs/Meds Orders: Active Orders 24 hr Category Date Time Status EKG Documentation Completion [RC] STAT Care 06/17/19 20:59 Active Labs: Laboratory Tests 06/17/19 06/17/19 06/17/19 Range/Units 21:10 21:10 21:10 WBC 4.99 (4.0-11.0) K/uL RBC 4.76 (4.30-5.90) M/uL Hgb 14.2 (12.0-16.0) g/dL Hct 41.3 (36.0-46.0) % MCV 86.8 (80.0-98.0) fL MCH 29.8 (27.0-32.0) pg MCHC 34.4 (31.0-37.0) g/dL RDW Std Deviation 39.6 (28.0-62.0) fl RDW Coeff of Leanne 13 (11.0-15.0) % Plt Count 189 (150-400) K/uL MPV 10.70 (7.40-12.00) fL Neut % (Auto) 48.3 (48.0-80.0) % Lymph % (Auto) 38.3 (16.0-40.0) % [place] % (Auto) 9.0 (0.0-15.0) % Eos % (Auto) 4.0 (0.0-7.0) % Baso % (Auto) 0.4 (0.0-1.5) % Neut # (Auto) 2.4 (1.4-5.7) K/uL Lymph # (Auto) 1.9 (0.6-2.4) K/uL [place] # (Auto) 0.5 (0.0-0.8) K/uL Eos # (Auto) 0.2 (0.0-0.7) K/uL Baso # (Auto) 0.0 (0.0-0.1) K/uL Nucleated RBC % 0.0 /100WBC Nucleated RBCs # 0 K/uL Sodium 143 (136-145) mmol/L Potassium 3.8 (3.5-5.1) mmol/L Chloride 107 (98-107) mmol/L Carbon Dioxide 25.5 (21.0-32.0) mmol/L BUN 13 (7.0-18.0) mg/dL Creatinine 0.8 (0.6-1.0) mg/dL Est Cr Clr Drug Dosing 74.86 mL/min Estimated GFR (MDRD) > 60.0 ml/min Glucose 107 H (74-106) mg/dL Calcium 9.7 (8.5-10.1) mg/dL Total Bilirubin 0.3 (0.2-1.0) mg/dL AST 26 (15-37) IU/L ALT 50 (14-63) IU/L Alkaline Phosphatase 85 (46-116) U/L Total Protein 6.8 (6.4-8.2) g/dL Albumin 3.9 (3.4-5.0) g/dL Globulin 2.9 (2.6-4.0) g/dL Albumin/Globulin Ratio 1.3 (0.9-1.6) TSH 3rd Generation 6.78 H (0.36-3.74) uIU/mL Urine Color YELLOW Urine Appearance CLEAR Urine pH 6.5 (5.0-8.0) Ur Specific [place] 1.010 (1.001-1.035) Urine Protein NEGATIVE (NEGATIVE) mg/dL Urine Glucose (UA) NEGATIVE (NEGATIVE) mg/dL Urine Ketones NEGATIVE (NEGATIVE) mg/dL Urine Occult Blood NEGATIVE (NEGATIVE) Urine Nitrite NEGATIVE (NEGATIVE) Urine Bilirubin NEGATIVE (NEGATIVE) Urine Urobilinogen 0.2 (<2.0) EU/dL Ur Leukocyte Esterase NEGATIVE (NEGATIVE) Urine Opiates Screen (NEGATIVE) Ur Oxycodone Screen (NEGATIVE) Urine Methadone Screen (NEGATIVE) Ur Barbiturates Screen (NEGATIVE) Ur Phencyclidine Scrn (NEGATIVE) Ur Amphetamine Screen (NEGATIVE) U Methamphetamines Scrn (NEGATIVE) U Benzodiazepines Scrn (NEGATIVE) U Cocaine Metab Screen (NEGATIVE) U Marijuana (THC) Screen (NEGATIVE) 06/17/19 Range/Units 21:10 WBC (4.0-11.0) K/uL RBC (4.30-5.90) M/uL Hgb (12.0-16.0) g/dL Hct (36.0-46.0) % MCV (80.0-98.0) fL MCH (27.0-32.0) pg MCHC (31.0-37.0) g/dL RDW Std Deviation (28.0-62.0) fl RDW Coeff of Leanne (11.0-15.0) % Plt Count (150-400) K/uL MPV (7.40-12.00) fL Neut % (Auto) (48.0-80.0) % Lymph % (Auto) (16.0-40.0) % [place] % (Auto) (0.0-15.0) % Eos % (Auto) (0.0-7.0) % Baso % (Auto) (0.0-1.5) % Neut # (Auto) (1.4-5.7) K/uL Lymph # (Auto) (0.6-2.4) K/uL [place] # (Auto) (0.0-0.8) K/uL Eos # (Auto) (0.0-0.7) K/uL Baso # (Auto) (0.0-0.1) K/uL Nucleated RBC % /100WBC Nucleated RBCs # K/uL Sodium (136-145) mmol/L Potassium (3.5-5.1) mmol/L Chloride (98-107) mmol/L Carbon Dioxide (21.0-32.0) mmol/L BUN (7.0-18.0) mg/dL Creatinine (0.6-1.0) mg/dL Est Cr Clr Drug Dosing mL/min Estimated GFR (MDRD) ml/min Glucose (74-106) mg/dL Calcium (8.5-10.1) mg/dL Total Bilirubin (0.2-1.0) mg/dL AST (15-37) IU/L ALT (14-63) IU/L Alkaline Phosphatase (46-116) U/L Total Protein (6.4-8.2) g/dL Albumin (3.4-5.0) g/dL Globulin (2.6-4.0) g/dL Albumin/Globulin Ratio (0.9-1.6) TSH 3rd Generation (0.36-3.74) uIU/mL Urine Color Urine Appearance Urine pH (5.0-8.0) Ur Specific [place] (1.001-1.035) Urine Protein (NEGATIVE) mg/dL Urine Glucose (UA) (NEGATIVE) mg/dL Urine Ketones (NEGATIVE) mg/dL Urine Occult Blood (NEGATIVE) Urine Nitrite (NEGATIVE) Urine Bilirubin (NEGATIVE) Urine Urobilinogen (<2.0) EU/dL Ur Leukocyte Esterase (NEGATIVE) Urine Opiates Screen NEGATIVE (NEGATIVE) Ur Oxycodone Screen NEGATIVE (NEGATIVE) Urine Methadone Screen NEGATIVE (NEGATIVE) Ur Barbiturates Screen NEGATIVE (NEGATIVE) Ur Phencyclidine Scrn NEGATIVE (NEGATIVE) Ur Amphetamine Screen NEGATIVE (NEGATIVE) U Methamphetamines Scrn NEGATIVE (NEGATIVE) U Benzodiazepines Scrn NEGATIVE (NEGATIVE) U Cocaine Metab Screen NEGATIVE (NEGATIVE) U Marijuana (THC) Screen NEGATIVE (NEGATIVE) Meds: Medications Discontinued Medications Generic Name Dose Route Start Last Admin Trade Name Freq PRN Reason Stop Dose Admin Sodium Chloride 1,000 mls @ 999 mls/hr 06/17/19 20:54 06/17/19 21:17 Normal Saline IV 06/17/19 21:54 999 mls/hr STAT ONE Administration Departure - Departure Time of Disposition: 22:31 Disposition: Home, Self-Care 01 Clinical Impression: Encounter for medical screening examination, Confusion with non-focal neuro exam - Discharge Information Referrals: PCP,None [Primary Care Provider] - Forms: ED Department Discharge Additional Instructions: The following information is given to patients seen in the emergency department who are being discharged to home. This information is to outline your options for follow-up care. We provide all patients seen in our emergency department with a follow-up referral. The need for follow-up, as well as the timing and circumstances, are variable depending upon the specifics of your emergency department visit. If you don't have a primary care physician on staff, we will provide you with a referral. We always advise you to contact your personal physician following an emergency department visit to inform them of the circumstance of the visit and for follow-up with them and/or the need for any referrals to a consulting specialist. The emergency department will also refer you to a specialist when appropriate. This referral assures that you have the opportunity for follow-up care with a specialist. All of these measure are taken in an effort to provide you with optimal care, which includes your follow-up. Under all circumstances we always encourage you to contact your private physician who remains a resource for coordinating your care. When calling for follow-up care, please make the office aware that this follow-up is from your recent emergency room visit. If for any reason you are refused follow-up, please contact the [facility] Emergency Department at and asked to speak to the emergency department charge nurse. [facility] [address] [place] [id number] [address] [id number] 1. Increase your oral fluids. Please get plenty of rest and eat small frequent meals. 2. Follow-up with the ENT specialist for the ear infection. Follow up with PCP and/or neurology as we discussed. 3. Return to the ED as needed as discussed. - My Orders Last 24 Hours: My Active Orders 06/17/19 20:59 EKG Documentation Completion [RC] STAT - Assessment/Plan Last 24 Hours: My Active Orders 06/17/19 20:59 EKG Documentation Completion [RC] STAT
[2019-06-17 21:54] LABS: BLOOD UREA NITROGEN,BUN 13 mg/dL (7.0-18.0); CARBON DIOXIDE,CO2 25.5 mmol/L (21.0-32.0); CHLORIDE,CL 107 mmol/L (98-107); GLUCOSE RANDOM 107 mg/dL (74-106); POTASSIUM,K 3.8 mmol/L (3.5-5.1); SODIUM,NA 143 mmol/L (136-145)
--- NOTE | 2019-06-17 22:20 | CT ---
INDICATION: Headache, confusion TECHNIQUE: CT head without contrast. COMPARISON: None FINDINGS: CSF spaces: Within normal limits for age. Brain parenchyma: The woods-white differentiation is normal. No sign of mass, hemorrhage, or midline shift. Skull base and calvarium: The visualized paranasal sinuses and mastoid air cells demonstrate no acute or significant findings. The visualized orbits are grossly unremarkable. No skull fractures. There is a 1.7 x 1.3 oval soft tissue mass in the right posterior scalp containing a focus of calcification. IMPRESSION: No acute intracranial abnormality. Likely sebaceous cyst in the right posterior scalp. Please note that all CT scans at this facility use dose modulation, iterative reconstruction, and/or weight-based dosing when appropriate to reduce radiation dose to as low as reasonably achievable. Dictated by Evelyne Silva MD @ Jun 17 2019 10:20PM Signed by Dr. Evelyne Silva @ Jun 17 2019 10:20PM
[2019-06-17 22:29] VITALS: BP 148/92; PULSE 69
== END 2019-06-17 22:40 | disposition home or self-care (01) ==
LOC: MW.ED 20:38
DX: R41.0 Disorientation, unspecified (principal); I10 Essential (primary) hypertension; E66.9 Obesity, unspecified; Z98.890 Other specified postprocedural states; Z98.51 Tubal ligation status
CPT/HCPCS: 36415; 70450; 80053; 80305; 81003; 84443; 85025; 93005; 96360; 99285; J7040; 99284

== ENCOUNTER 2020-06-02 14:44 | Emergency (ER) | payer SELFPAY ==
[2020-06-02] MEDS ORDERED: Ketorolac 60 MG/2 ML SDV IM ONE (15:15)
--- NOTE | 2020-06-02 15:21 | EDM.PDOC ---
ED HPI GENERAL MEDICAL PROBLEM - General Chief Complaint: ENT Problem Stated Complaint: EAR INFECTION Time Seen by Provider: 06/02/20 15:04 Source of Information: Reports: Patient History Limitations: Reports: No Limitations - History of Present Illness INITIAL COMMENTS - FREE TEXT/NARRATIVE: Presents reporting left ear pain. Patient states she has a long history of problems with her left ear. As a child she had chronic ear infections and PE tubes x3. When she was 20 she noticed that she was hard of hearing and had surgery on her left ear to "clean up ear". About 6 months ago she began having pressure, pain and drainage from her left ear. She saw her primary provider a number of times. She was on 3 different oral antibiotics and 2 different eardrops without resolution. She currently has a referral to ENT in [facility] but 2 weeks ago she lost her insurance and canceled her appointment due to financial constraints. This morning she states she sneezed, her left ear started draining, there was a lot of pressure and it "smells bad". During the last 6 months she has had ear drainage, left eye watering intermittently and drainage into the back of her throat. Had no fever or other constitutional symptoms. left ear Pain Score (Numeric/FACES): 7 - Related Data Allergies Allergy/AdvReac Type Severity Reaction Status Date / Time iodine Allergy Swelling Verified 06/02/20 14:58 Penicillins Allergy Rash Verified 06/02/20 14:58 Home Meds: Home Meds Levothyroxine 25 mcg PO DAILY 06/17/19 [History] Diclofenac Sodium [Voltaren] 75 mg PO BIDMEALS PRN #20 tab.ec 06/02/20 [Rx] Doxycycline Hyclate 1 cap PO BID #20 capsule 06/02/20 [Rx] Ofloxacin [Ocuflox 0.3% Ophth Soln] 10 drop .XX BID 14 Days #1 bottle 06/02/20 [Rx] Past Medical History - Past Health History Medical/Surgical History: Denies Medical/Surgical History HEENT History: Reports: Hard of Hearing, Otitis Media Other HEENT History: hard of hearing left ear Cardiovascular History: Reports: Hypertension Gastrointestinal History: Reports: Diverticulosis, GERD, Other (See Below) Other Gastrointestinal History: Colitis, h/o peptic ulcer Genitourinary History: Reports: None 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: , Other (See Below) Other SENIOR CLIMATE ADVISOR History: Tubal ligation Musculoskeletal History: Reports: Arthritis Neurological History: Reports: Migraines, Other (See Below) Psychiatric History: Reports: Anxiety, Depression Endocrine/Metabolic History: Reports: Obesity/BMI 30+ - Infectious Disease History Infectious Disease History: Reports: Chicken Pox, MRSA - Past Surgical History HEENT Surgical History: Reports: Tonsillectomy, Other (See Below) Other HEENT Surgeries/Procedures: Ear Surgery GI Surgical History: Reports: None Female Surgical History: Reports: Section, Tubal Ligation Other Female Surgeries/Procedures: c/section x3, tubal ligation Musculoskeletal Surgical History: Reports: Arthroscopic Knee, Carpal Tunnel Other Musculoskeletal Surgeries/Procedures:: rt knee arthroscopy, left knee arthroscopy 3 months ago Social & Family History - Family History Family Medical History: Noncontributory Cardiac: Reports: Hypertension, [place], Other (See Below) Other Cardiac Family History: Unknown "heart disease" Respiratory: Reports: COPD Endocrine/Metabolic: Reports: Diabetes, type II - Tobacco Use Smoking Status *Q: Never Smoker - Caffeine Use Caffeine Use: Reports: Coffee - Recreational Drug Use Recreational Drug Use: No ED ROS ENT - Review of Systems Review Of Systems: Comprehensive ROS is negative, except as noted in HPI. ED EXAM, ENT - Physical Exam Exam: See Below Exam Limited By: No Limitations General Appearance: Alert, No Apparent Distress Ears: Normal External Exam, TM Bulging, Other (Left TM opaque, middle ear effusion, injected) Nose: Normal Inspection Mouth/Throat: Normal Inspection Head: Atraumatic, Normocephalic Neck: Normal Inspection, Supple, Non-Tender. No: Lymphadenopathy (L), Lymphadenopathy (R) Respiratory/Chest: No Respiratory Distress, Lungs Clear, Normal Breath Sounds Cardiovascular: Normal Peripheral Pulses, Regular Rate, Rhythm Neurological: Alert, Oriented Psychiatric: Normal Affect, Normal Mood Skin: Warm, Dry, Intact, Normal Color, No Rash Lymphatic: No Adenopathy Course - Vital Signs Last Recorded V/S: Last Vital Signs Temp 36.7 C 06/02/20 14:55 Pulse 73 06/02/20 14:55 Resp 16 06/02/20 14:55 BP 138/80 06/02/20 14:55 Pulse Ox 98 06/02/20 14:55 - Orders/Labs/Meds Orders: Active Orders 24 hr Category Date Time Status Ketorolac [Toradol] Med 06/02/20 15:15 Once 60 mg IM ONETIME ONE Departure - Departure Time of Disposition: 15:48 Disposition: Home, Self-Care 01 Condition: Good Clinical Impression: Suppurative otitis media - Discharge Information Referrals: Alexandra Osullivan, THROUGH OPERATOR [Primary Care Provider] - Additional Instructions: The following information is given to patients seen in the emergency department who are being discharged to home. This information is to outline your options for follow-up care. We provide all patients seen in our emergency department with a follow-up referral. The need for follow-up, as well as the timing and circumstances, are variable depending upon the specifics of your emergency department visit. If you don't have a primary care physician on staff, we will provide you with a referral. We always advise you to contact your personal physician following an emergency department visit to inform them of the circumstance of the visit and for follow-up with them and/or the need for any referrals to a consulting specialist. The emergency department will also refer you to a specialist when appropriate. This referral assures that you have the opportunity for follow-up care with a specialist. All of these measure are taken in an effort to provide you with optimal care, which includes your follow-up. Under all circumstances we always encourage you to contact your private physician who remains a resource for coordinating your care. When calling for follow-up care, please make the office aware that this follow-up is from your recent emergency room visit. If for any reason you are refused follow-up, please contact the [facility] Emergency Department at and asked to speak to the emergency department charge nurse. 1. Ear drop 10 drops left ear twice daily for 14 days 2. Take your antibiotics twice daily for the next 10 days 3. Take diclofenac twice daily--this is for ear inflammation but will help with pain also. 4. See ENT referral as soon as possible. 5. Follow up with primary provider Sepsis Event Note (ED) - Evaluation Sepsis Screening Result: No Definite Risk - Focused Exam Vital Signs: Vital Signs Temp Pulse Resp BP Pulse Ox 06/02/20 14:55 36.7 C 73 16 138/80 98 - My Orders Last 24 Hours: My Active Orders 06/02/20 15:15 Ketorolac [Toradol] 60 mg IM ONETIME ONE - Assessment/Plan Last 24 Hours: My Active Orders 06/02/20 15:15 Ketorolac [Toradol] 60 mg IM ONETIME ONE
[2020-06-02 16:16] VITALS: BP 135/86; PULSE 63
== END 2020-06-02 16:02 | disposition home or self-care (01) ==
LOC: MW.ED 14:44
DX: H66.42 Suppurative otitis media, unspecified, left ear (principal); I10 Essential (primary) hypertension; M19.90 Unspecified osteoarthritis, unspecified site; Z88.0 Allergy status to penicillin; Z88.8 Allergy status to other drugs, medicaments and biological substances; Z98.890 Other specified postprocedural states; Z79.899 Other long term (current) drug therapy
CPT/HCPCS: 96372; 99282; J1885

== ENCOUNTER 2020-08-17 16:02 | Emergency (ER) | payer MEDICAID ==
[2020-08-17] MEDS ORDERED: Ketorolac 60 MG/2 ML SDV IM ONE (16:22)
[2020-08-17] MEDS ORDERED: Orphenadrine 60 MG/2 ML Inj IM ONE (16:22)
--- NOTE | 2020-08-17 16:22 | EDM.PDOC ---
ED HPI GENERAL MEDICAL PROBLEM - General Chief Complaint: Back Pain or Injury Stated Complaint: LOWER BACK PAIN Time Seen by Provider: 08/17/20 16:18 Source of Information: Reports: Patient History Limitations: Reports: No Limitations - History of Present Illness INITIAL COMMENTS - FREE TEXT/NARRATIVE: HISTORY AND PHYSICAL: History of present illness: Patient is a 50-year-old female who presents to the emergency room with complaints of low lumbar back pain. She states she has chronic back pain and is supposed to have surgery at some point for a lumbar fusion. She does see a surgeon out of [place] who states that she should wait "as long as she can" as this will be best for her long-term prognosis. She typically is able to alleviate her pain with Tylenol and ibuprofen although "at least twice a year I need a shot of Toradol and muscle relaxer". She denies any injury, trauma or falls. She denies any weakness, numbness/tingling, urinary or fecal incontinence. Patient denies any fever, chills, headache, change in vision, syncope or near syncope. Denies any chest pain, back pain, shortness of breath or cough. Denies any GI or symptoms. Review of systems: As per history of present illness and below otherwise all systems reviewed and negative. Past medical history: As per history of present illness and as reviewed below otherwise noncontributory. Surgical history: As per history of present illness and as reviewed below otherwise noncontributory. Social history: See social history for further information Family history: As per history of present illness and as reviewed below otherwise noncontributory. Physical exam: General: Well developed and well nourished. Alert and orientated x 3. Nontoxic in appearance and in no acute distress. Vital signs are stable and have been reviewed by me. Nursing notes were reviewed. HEENT: Atraumatic, normocephalic, pupils equal and reactive bilaterally, negative for conjunctival pallor or scleral icterus, mucous membranes moist, TMs normal bilaterally, throat clear, neck supple, nontender, trachea midline. No drooling or trismus noted. No meningeal signs. No hot potato voice noted. Lungs: Clear to auscultation, breath sounds equal bilaterally, chest nontender. Normal work of breathing, no accessory muscles used. Heart: S1S2, regular rate and rhythm without overt murmur Abdomen: Soft, nondistended, nontender. Negative for masses or hepatosplenomegaly. Negative for costovertebral tenderness. Pelvis: Stable nontender. C-spine/Back: No pinpoint vertebral tenderness upon palpation. No crepitus, step-offs or obvious deformities. Bilateral paraspinous lumbar muscular tenderness. Patient is ambulatory into the emergency room without difficulty or deficit. Able to rock back on heels and walk on toes. Denies any urinary or fecal incontinence. Denies any numbness, tingling or saddle paresthesia. No concerns of serious infection, fracture or cord compression, or cauda equina syndrome. Deep tendon reflexes brisk bilaterally. Skin: Intact, warm, dry. No lesions or rashes noted. Hematologic: No petechiae or purpra. Mucosa appropriate color and normal nail bed color and refill. Extremities: Atraumatic, moves all extremities per self without difficulty or deficits, negative for cords or calf pain. Neurovascular unremarkable. Neuro: Awake, alert, oriented. Cranial nerves II through XII unremarkable. Cerebellum unremarkable. Motor and sensory unremarkable throughout. Exam nonfocal. Psychiatric: Mood and affect are appropriate. Normal thought process. Answering questions appropriately. Notes: We did discuss doing imaging which she declined. She says she does have a surgeon/specialist and has had multiple x-ray/CT/MRI of her lumbar spine. We will do Toradol and Norflex as she has had good relief with this in the past. I have spoken with the patient/caregiver and discussed today's findings, in addition to providing specific details for plan of care. Reassessment at the time of disposition demonstrates that the patient is in no acute distress. The patient is stable for discharge, counseling was provided and we discussed in great detail signs and symptoms that would prompt them to return to the Emergency Department. Medication, follow up and supportive care measures were reviewed and discussed. Voices understanding and is agreeable to plan of care. Denies any further questions or concerns at this time. Diagnostics: Declines Therapeutics: Toradol, Norflex Prescription: Diclofenac, Flexeril Impression: Lumbago Plan: 1. The medication you received today does cause drowsiness, so do not drive for the remaining day 2. When resting please lay on a flat firm surface. Limit your immobility to prevent muscle stiffness. Get up to ambulate/move around/gentle stretching multiple times throughout the day. May alternate heat and ice to the painful areas 3. Tylenol as needed for back pain. Otherwise take the prescribed Flexeril and diclofenac as directed. Diclofenac is an anti-inflammatory so do not take any additional NSAIDs with this medication, such as ibuprofen or Aleve. Flexeril as a muscle relaxant, this medication may cause drowsiness a do not take it will driving her needing to be functioning outside of the house. 4. Please follow-up with your primary care provider as we discussed. If your symptoms should worsen, new symptoms develop or any of the signs and symptoms we discussed should arise please return to the emergency room or call 911 (if needed). Definitive disposition and diagnosis as appropriate pending reevaluation and review of above. .. . low back Pain Score (Numeric/FACES): 7 - Related Data Allergies Allergy/AdvReac Type Severity Reaction Status Date / Time iodine Allergy Swelling Verified 08/17/20 16:48 Penicillins Allergy Rash Verified 08/17/20 16:48 Home Meds: Home Meds Levothyroxine 25 mcg PO DAILY 06/17/19 [History] Cyclobenzaprine [Flexeril] 10 mg PO TID PRN #21 tab 08/17/20 [Rx] Diclofenac Sodium [Voltaren] 75 mg PO BIDMEALS PRN #30 tab.cr 08/17/20 [Rx] Past Medical History - Past Health History Medical/Surgical History: Denies Medical/Surgical History HEENT History: Reports: Hard of Hearing, Otitis Media Other HEENT History: hard of hearing left ear Cardiovascular History: Reports: Hypertension Gastrointestinal History: Reports: Diverticulosis, GERD, Other (See Below) Other Gastrointestinal History: Colitis, h/o peptic ulcer Genitourinary History: Reports: None GAS FLOW REGULATOR History: Reports: , Other (See Below) Other GAS FLOW REGULATOR History: Tubal ligation Musculoskeletal History: Reports: Arthritis Neurological History: Reports: Migraines, Other (See Below) Psychiatric History: Reports: Anxiety, Depression Endocrine/Metabolic History: Reports: Obesity/BMI 30+ - Infectious Disease History Infectious Disease History: Reports: Chicken Pox, MRSA - Past Surgical History HEENT Surgical History: Reports: Tonsillectomy, Other (See Below) Other HEENT Surgeries/Procedures: Ear Surgery GI Surgical History: Reports: None Female Surgical History: Reports: Section, Tubal Ligation Other Female Surgeries/Procedures: c/section x3, tubal ligation Musculoskeletal Surgical History: Reports: Arthroscopic Knee, Carpal Tunnel Other Musculoskeletal Surgeries/Procedures:: rt knee arthroscopy, left knee arthroscopy 3 months ago Social & Family History - Family History Family Medical History: Noncontributory Cardiac: Reports: Hypertension, [place], Other (See Below) Other Cardiac Family History: Unknown "heart disease" Respiratory: Reports: COPD Endocrine/Metabolic: Reports: Diabetes, type II - Caffeine Use Caffeine Use: Reports: Coffee ED ROS GENERAL - Review of Systems Review Of Systems: Comprehensive ROS is negative, except as noted in HPI. ED EXAM,LOWER BACK PAIN/INJURY - Physical Exam Exam: See Below (See dictation) Course - Vital Signs Last Recorded V/S: Last Vital Signs Temp 96.0 F L 08/17/20 16:45 Pulse 85 08/17/20 16:45 Resp 18 08/17/20 16:45 BP 136/90 08/17/20 16:45 Pulse Ox 98 08/17/20 16:45 - Orders/Labs/Meds Meds: Medications Discontinued Medications Generic Name Dose Route Start Last Admin Trade Name Freq PRN Reason Stop Dose Admin Ketorolac Tromethamine 60 mg 08/17/20 16:22 08/17/20 16:35 Toradol IM 08/17/20 16:23 60 mg ONETIME ONE Administration Orphenadrine Citrate 60 mg 08/17/20 16:22 08/17/20 16:33 Norflex IM 08/17/20 16:23 60 mg ONETIME ONE Administration Departure - Departure Time of Disposition: 16:26 Disposition: Home, Self-Care 01 Clinical Impression: Lumbago Qualifiers: Chronicity: acute Back pain laterality: bilateral Sciatica presence: without sciatica Qualified Code(s): M54.5 - Low back pain - Discharge Information Prescriptions: Cyclobenzaprine [Flexeril] 10 mg PO TID PRN #21 tab PRN Reason: Muscle Spasm Diclofenac Sodium [Voltaren] 75 mg PO BIDMEALS PRN #30 tab.cr PRN Reason: Pain Instructions: Acute Back Pain, Adult Referrals: PCP,Not In Area [Primary Care Provider] - Forms: ED Department Discharge Additional Instructions: The following information is given to patients seen in the emergency department who are being discharged to home. This information is to outline your options for follow-up care. We provide all patients seen in our emergency department with a follow-up referral. The need for follow-up, as well as the timing and circumstances, are variable depending upon the specifics of your emergency department visit. If you don't have a primary care physician on staff, we will provide you with a referral. We always advise you to contact your personal physician following an emergency department visit to inform them of the circumstance of the visit and for follow-up with them and/or the need for any referrals to a consulting specialist. The emergency department will also refer you to a specialist when appropriate. This referral assures that you have the opportunity for follow-up care with a specialist. All of these measure are taken in an effort to provide you with optimal care, which includes your follow-up. Under all circumstances we always encourage you to contact your private physician who remains a resource for coordinating your care. When calling for follow-up care, please make the office aware that this follow-up is from your recent emergency room visit. If for any reason you are refused follow-up, please contact the [facility] Emergency Department at and asked to speak to the emergency department charge nurse. [facility] [address] [place] [id number] [id number] Thank you for choosing the [facility] emergency department in [facility] for your medical needs today. It was a pleasure caring for you. Today you were seen in the emergency department for back pain. 1. The medication you received today does cause drowsiness, so do not drive for the remaining day 2. When resting please lay on a flat firm surface. Limit your immobility to prevent muscle stiffness. Get up to ambulate/move around/gentle stretching multiple times throughout the day. May alternate heat and ice to the painful areas 3. Tylenol as needed for back pain. Otherwise take the prescribed Flexeril and diclofenac as directed. Diclofenac is an anti-inflammatory so do not take any additional NSAIDs with this medication, such as ibuprofen or Aleve. Flexeril as a muscle relaxant, this medication may cause drowsiness a do not take it will driving her needing to be functioning outside of the house. 4. Please follow-up with your primary care provider as we discussed. If your symptoms should worsen, new symptoms develop or any of the signs and symptoms we discussed should arise please return to the emergency room or call 911 (if needed). Sepsis Event Note (ED) - Evaluation Sepsis Screening Result: No Definite Risk - Focused Exam Vital Signs: Vital Signs Temp Pulse Resp BP Pulse Ox 08/17/20 16:45 96.0 F L 85 18 136/90 98 08/17/20 16:12 96.5 F L 75 16 141/85 H 96
[2020-08-17 17:19] VITALS: BP 144/82; PULSE 65
== END 2020-08-17 17:20 | disposition home or self-care (01) ==
LOC: MW.ED 16:02
DX: M54.5 Low back pain (principal); I10 Essential (primary) hypertension; E66.9 Obesity, unspecified; Z68.36 Body mass index [BMI] 36.0-36.9, adult; Z88.0 Allergy status to penicillin; Z88.8 Allergy status to other drugs, medicaments and biological substances
CPT/HCPCS: 96372; 99283; J1885; J2360; 99282